=== PATIENT | female | born 1930 | race Caucasian/White ===

== ENCOUNTER 2016-09-16 12:27 | Emergency (ER) | payer MEDICARE ==
[~2016-09-16] VITALS: Ht 162.6 cm; Wt 75.0 kg
[~2016-09-16 12:27] MED LIST: CITA10TA4 PO; COZA50TA PO; DYAZ37.52 PO; OCUVTAB PO
[2016-09-16 12:31] VITALS: BP 157/72; PULSE 75; RESP 15; TEMP 98.1; O2SAT 97
[2016-09-16] MEDS ORDERED: B/P MED (12:37)
[2016-09-16] MEDS ORDERED: CHOLESTEROL MED (12:37)
[2016-09-16] MEDS ORDERED: ACID REFLUX (12:37)
[2016-09-16] MEDS ORDERED: SODIUM CHLORID 0.9% 500 ML INJ 500 ML IV ONE (12:45)
[2016-09-16] MEDS ORDERED: MECLIZINE HCL 25 MG TAB PO ONE (12:45)
[2016-09-16] MEDS ORDERED: ONDANSETRON HCL 4 MG/2 ML VIAL IVP ONE (12:45)
[2016-09-16 12:50] VITALS: O2SAT 97
[2016-09-16 12:56] LABS: AUTOMATED NEUTROPHIL # 5.4 TH/MM3 (1.8-7.7); BASOPHIL % 0.6 % (0.0-2.0); EOSINOPHIL # 0.1 TH/MM3 (0-0.4); EOSINOPHIL % 1.6 % (0.0-4.0); HEMO FLAGS DIFF FINAL; LYMPH % 19.5 % (9.0-44.0); LYMPHOCYTE # 1.5 TH/MM3 (1.0-4.8); MEAN CELL VOLUME 86.5 FL (80.0-100.0); MEAN CORPUSCULAR HEMOGLOBIN 28.5 PG (27.0-34.0); NEUT % 72.3 % (16.0-70.0); PLATELET COUNT 278 TH/MM3 (150-450); RED BLOOD COUNT 4.85 MIL/MM3 (4.00-5.30); RED CELL DISTRIBUTION WIDTH 13.7 % (11.6-17.2); WHITE BLOOD COUNT 7.5 TH/MM3 (4.0-11.0)
[2016-09-16] MEDS: SODIUM CHLORIDE 0.9% FLUSH 5 ML FLUSH IVF PRN ×2 (13:03→14:43)
[2016-09-16 13:05] LABS: CHLORIDE 101 MEQ/L (98-107); POTASSIUM 3.8 MEQ/L (3.5-5.1); SODIUM (NA) 139 MEQ/L (136-145)
[2016-09-16 13:09] LABS: ANION GAP 9 MEQ/L (5-15); BLOOD UREA NITROGEN 18 MG/DL (7-18)
[2016-09-16 13:12] LABS: ALT (GPT) 18 U/L (10-53); APTT (PATIENT) 31.3 SEC (24.3-30.1); AST (GOT) 14 U/L (15-37); GLOMERULAR FILTRATION RATE 68 ML/MIN (>89); PROTHROMBIN TIME - PATIENT 10.6 SEC (9.8-11.6)
[2016-09-16 13:14] LABS: TOTAL BILIRUBIN ADULT 0.4 MG/DL (0.2-1.0)
[2016-09-16 13:15] LABS: ALKALINE PHOSPHATASE 58 U/L (45-117)
--- NOTE | 2016-09-16 13:27 | RADHPO ---
EXAM DATE/TIME: 09/16/2016 13:09 [facility] COMPARISON: No previous studies available for comparison. INDICATIONS : Dizziness today. RADIATION DOSE: 65.90 CTDIvol (mGy) MEDICAL HISTORY : Hypertension. SURGICAL HISTORY : Tonsillectomy. ENCOUNTER: Initial ACUITY: 1 day PAIN SCALE: 0/10 LOCATION: Bilateral head TECHNIQUE: Multiple contiguous axial images were obtained of the head. Using automated exposure control and adjustment of the mA and/or kV according to patient size, radiation dose was kept as low as reasonably achievable to obtain optimal diagnostic quality images. FINDINGS: CEREBRUM: The ventricles are normal for age. No evidence of midline shift, mass lesion, hemorrha ge or acute infarction. No extra-axial fluid collections are seen. POSTERIOR FOSSA: The cerebellum and brainstem are intact. The 4th ventricle is midline. The cer ebellopontine angle is unremarkable. EXTRACRANIAL: The visualized portion of the orbits is intact. SKULL: The calvaria is intact. No evidence of skull fracture. CONCLUSION: Negative for acute process. Darwin Terry MD FACR on September 16, 2016 at 13:25 Board Certified Radiologist. This report was verified electronically.
[2016-09-16 13:53] LABS: BLOOD, URINE NEG (NEG); GLUCOSE,URINE NEG (NEG); KETONE, URINE TRACE mg/dL (NEG); NITRITE,URINE NEG (NEG); PH, URINE 6.5 (5.0-8.5)
[2016-09-16] MEDS ORDERED: METOCLOPRAMIDE HCL 10 MG TAB PO ONE (14:00)
[2016-09-16 14:03] LABS: METHOD OF COLLECTION CLEAN CATCH
[2016-09-16 14:04] LABS: COMMENT (UR) CULT NOT INDICATED; CULTURE IF INDICATED CULT NOT INDICATED; RBC, URINE 0-3 /hpf (0-3); URINE COLOR YELLOW (YELLW/STRAW); WBC, URINE 0-2 /hpf (0-5)
--- NOTE | 2016-09-16 14:28 | PD ---
HPI Chief Complaint: Dizziness Time Seen by Provider: 12:34 Travel History International Travel<30 days: No Contact w/Intl Traveler<30days: No Traveled to known affect area: No History of Present Illness HPI Patient is an 85-year-old female who comes in complaining of dizziness. She says she has been having a fullness in her right ear for the past few days, and has felt very dizzy today when she woke up. She says the dizziness mostly comes on when she sits or stands up. He feels better when she lays still. She denies any falls or head trauma. She denies any chest pain or shortness of breath. She denies any fever or chills. 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) Endocrine: No Gastrointestinal Disorders: Yes (GI BLEED) Genitourinary: No Hypertension: Yes Immune Disorder: No Implanted Vascular Access Dvce: Yes Musculoskeletal: Yes Neurologic: Yes Psychiatric: No Reproductive: No Respiratory: No Menopausal: Yes Past Surgical History Abdominal Surgery: Yes (APPENDECTOMY (CHILDHOOD)) AICD: No Appendectomy: Yes (childhood) Arteriovenous Shunt: No Cardiac Surgery: Yes Ear Surgery: No Endocrine Surgery: No Eye Surgery: No Genitourinary Surgery: No Gynecologic Surgery: No Insulin Pump: No Joint Replacement: Yes (bilateral knee) Oral Surgery: Yes (T&A (CHILDHOOD)) Pacemaker: No Thoracic Surgery: No Tonsillectomy: Yes Other Surgery: Yes (BREAST BX X 2) Social History Alcohol Use: No Tobacco Use: No Substance Use: No Allergies-Medications (Allergen,Severity, Reaction): Coded Allergies: Diclofenac (Verified Allergy, Severe, SEVERE VOMITING, 09/16/16) Paxil (Verified Allergy, Unknown, 09/16/16) Septra (Verified Allergy, Unknown, 09/16/16) Zoloft (Verified Allergy, Unknown, 09/16/16) Uncoded Allergies: PAIN MEDICATIONS (Allergy, Unknown, 09/16/16) Reported Meds & Prescriptions Reported Meds & Active Scripts Active Reported [Acid Reflux] [Cholesterol Med] [B/P Med] Review of Systems Except as stated in HPI: all other systems reviewed are Neg General / Constitutional: No: Fever, Chills Eyes: No: Blurred Vision HENT: Positive: Vertigo, No: Headaches Cardiovascular: No: Chest Pain or Discomfort Respiratory: No: Shortness of Breath Gastrointestinal: No: Nausea, Vomiting Musculoskeletal: No: Weakness, Edema Skin: No Change in Pigmentation Neurologic: Positive: Dizziness Physical Exam Narrative GENERAL: Awake and alert in no acute distress. SKIN: Warm and dry. HEAD: Atraumatic. Normocephalic. EYES: Pupils equal and round. No scleral icterus. Extraocular movements intact. ENT: Mucous membranes pink and moist. Tympanic membranes with no erythema bilaterally, light reflex present bilaterally. NECK: Trachea midline. No JVD. CARDIOVASCULAR: Regular rate and rhythm. No murmur appreciated. RESPIRATORY: No accessory muscle use. Clear to auscultation. Breath sounds equal bilaterally. GASTROINTESTINAL: Abdomen soft, non-tender, nondistended. MUSCULOSKELETAL: No obvious deformities. No clubbing. No cyanosis. No edema. NEUROLOGICAL: Awake and alert. No obvious cranial nerve deficits. Motor grossly within normal limits. Normal speech. Normal cerebellar function testing. PSYCHIATRIC: Appropriate mood and affect; insight and judgment normal. Data Data Last Documented VS Vital Signs Date Time Temp Pulse Resp B/P Pulse Ox O2 Delivery O2 Flow Rate FiO2 09/16/16 12:50 97 Room Air 09/16/16 12:31 98.1 75 15 157/72 Orders Electrocardiogram (09/16/16 12:39) Complete Blood Count With Diff (09/16/16 12:39) Comprehensive Metabolic Panel (09/16/16 12:39) Troponin I (09/16/16 12:39) Act Partial Throm Time (Ptt) (09/16/16 12:39) Prothrombin Time / Inr (Pt) (09/16/16 12:39) Urinalysis - C+S If Indicated (09/16/16 12:39) Ua Includes Microscopic (09/16/16 12:39) Ct Brain W/O Iv Contrast(Rout) (09/16/16 12:39) Ecg Monitoring (09/16/16 12:39) Iv Access Insert/Monitor (09/16/16 12:39) Oximetry (09/16/16 12:39) Meclizine (Antivert) (09/16/16 12:45) Ondansetron Inj (Zofran Inj) (09/16/16 12:45) Sodium Chloride 0.9% Flush (Ns Flush) (09/16/16 12:45) Sodium Chlorid 0.9% 500 Ml Inj (Ns 500 M (09/16/16 12:45) Metoclopramide (Reglan) (09/16/16 14:00) Labs Laboratory Tests Test 09/16/16 09/16/16 12:51 13:40 White Blood Count 7.5 TH/MM3 Red Blood Count 4.85 MIL/MM3 Hemoglobin 13.8 GM/DL Hematocrit 42.0 % Mean Corpuscular Volume 86.5 FL Mean Corpuscular Hemoglobin 28.5 PG Mean Corpuscular Hemoglobin 33.0 % Concent Red Cell Distribution Width 13.7 % Platelet Count 278 TH/MM3 Mean Platelet Volume 7.0 FL Neutrophils (%) (Auto) 72.3 % Lymphocytes (%) (Auto) 19.5 % Monocytes (%) (Auto) 6.0 % Eosinophils (%) (Auto) 1.6 % Basophils (%) (Auto) 0.6 % Neutrophils # (Auto) 5.4 TH/MM3 Lymphocytes # (Auto) 1.5 TH/MM3 Monocytes # (Auto) 0.5 TH/MM3 Eosinophils # (Auto) 0.1 TH/MM3 Basophils # (Auto) 0.0 TH/MM3 CBC Comment DIFF FINAL Differential Comment Prothrombin Time 10.6 SEC Prothromb Time International 1.0 RATIO Ratio Activated Partial 31.3 SEC Thromboplast Time Sodium Level 139 MEQ/L Potassium Level 3.8 MEQ/L Chloride Level 101 MEQ/L Carbon Dioxide Level 29.0 MEQ/L Anion Gap 9 MEQ/L Blood Urea Nitrogen 18 MG/DL Creatinine 0.80 MG/DL Estimat Glomerular Filtration 68 ML/MIN Rate Random Glucose 108 MG/DL Calcium Level 9.3 MG/DL Total Bilirubin 0.4 MG/DL Aspartate Amino Transf 14 U/L (AST/SGOT) Alanine Aminotransferase 18 U/L (ALT/SGPT) Alkaline Phosphatase 58 U/L Troponin I LESS THAN 0.02 NG/ML Total Protein 7.1 GM/DL Albumin 3.3 GM/DL Urine Collection Type CLEAN CATCH Urine Color YELLOW Urine Turbidity CLEAR Urine pH 6.5 Urine Specific [place] 1.017 Urine Protein NEG mg/dL Urine Glucose (UA) NEG mg/dL Urine Ketones TRACE mg/dL Urine Occult Blood NEG Urine Nitrite NEG Urine Bilirubin NEG Urine Leukocyte Esterase NEG Urine RBC 0-3 /hpf Urine WBC 0-2 /hpf Urine Squamous Epithelial 6-8 /hpf Cells Microscopic Urinalysis Comment CULT NOT INDICATED Urine Collection Time 13:40 [facility] Medical Decision Making Medical Screen Exam Complete: Yes Emergency Medical Condition: Yes Interpretation(s) ECG shows normal sinus rhythm at 63, no ST elevation or depression. Normal intervals. Differential Diagnosis ICH versus vertigo versus electrolyte imbalance versus infection versus arrhythmia Narrative Course Patient is an 85-year-old female comes in complaining of dizziness that is worse with sitting or standing up. Exam shows no neurologic abnormalities. IV established, patient connected to lunchroom monitor. ECG shows normal sinus rhythm, normal intervals. Labs sent show no acute abnormalities. CT of the head performed shows no acute abnormalities. Patient given IV fluids, meclizine. She reports some improvement of her symptoms, but still feels a little dizzy. Given a dose of Reglan. She reports resolution of her symptoms. Patient will be discharged with prescription for meclizine. Advised follow-up with her doctor. Advised she may need to follow-up with ENT if her symptoms continue. Advised to return to the ED as needed for any worsening symptoms. Patient is comfortable discharge at this time. Diagnosis Primary Impression: Vertigo Patient Instructions: Benign Paroxysmal Positional Vertigo (ED), General Instructions Additional Instructions: Follow up with your doctor. Take the Meclizine as needed for dizziness. Be sure to drink plenty of fluids. Return to the ED as needed for any worsening symptoms. Scripts Meclizine 25 Mg Tab25 Mg PO TID PRN (VERTIGO) 7 Days Ref 0 Prov:Jennifer Ochoa MD 09/16/16 Disposition: 01 DISCHARGE HOME Condition: Stable Jennifer Ochoa MD Sep 16, 2016 14:27
--- NOTE | 2016-09-16 15:13 | EKG ---
Date Performed: 09/16/2016 Time Performed: 12:52:22 PTAGE: 85 years EKG: Sinus rhythm Possible left anterior fascicular block QRS changes V3/V4 may be due to LVH but cannot rule out ante rior infarct Abnormal ECG PREVIOUS TRACING : 12/22/2013 18.42 Since previous tracing, no significant change noted DOCTOR: Larry Jeronimo Interpretating Date/Time 09/16/2016 15:13:11
[2016-09-16] MEDS ORDERED: MECL-62 PO (15:23)
[2016-09-16 16:08] VITALS: BP 189/89
== END 2016-09-16 16:10 | disposition home or self-care (01) ==
LOC: PHED 12:27
DX: R42 Dizziness and giddiness (principal); R94.31 Abnormal electrocardiogram [ECG] [EKG]; I10 Essential (primary) hypertension; E78.00 Pure hypercholesterolemia, unspecified; Z86.79 Personal history of other diseases of the circulatory system; Z87.19 Personal history of other diseases of the digestive system; Z87.39 Personal history of other diseases of the musculoskeletal system and connective tissue; Z86.69 Personal history of other diseases of the nervous system and sense organs
CPT/HCPCS: 70450; 80053; 81001; 84484; 85025; 85610; 85730; 93005; 96361; 96374; 99284; J2405; J7040

== ENCOUNTER 2016-10-07 08:12 | Emergency (ER) | payer MEDICARE ==
[~2016-10-07] VITALS: Ht 162.6 cm; Wt 75.0 kg
[~2016-10-07 08:12] MED LIST changes: +ACID REFLUX; +B/P MED; +CHOLESTEROL MED; -CITA10TA4 PO; -COZA50TA PO; -DYAZ37.52 PO; +MECL-62 PO; -OCUVTAB PO
[2016-10-07 08:23] VITALS: BP 159/70; PULSE 66; RESP 16; TEMP 95.2; O2SAT 96
[2016-10-07] MEDS ORDERED: SODIUM CHLOR 0.9% 1000 ML INJ 1,000 ML IV ONE (08:34)
--- NOTE | 2016-10-07 08:40 | PD ---
HPI Chief Complaint: Dizziness Time Seen by Provider: 08:34 Travel History International Travel<30 days: No Contact w/Intl Traveler<30days: No Traveled to known affect area: No History of Present Illness HPI The patient is a 85-year-old female who presents emergency department for dizziness. The patient states she had dizziness several weeks ago and was evaluated in the emergency department. The patient was diagnosed with vertigo at that time and was prescribed meclizine. The patient states her symptoms did improve, however, the meclizine constipated her and also made her significantly drowsy. The patient called her primary physician's office, Dr. Vasquez, who advised to take her medications. However, the patient states she is unable to tolerate her medications, therefore, stopped taking her medications. The patient states she awakened this morning to use the restroom, when she stood up she had vertigo. Patient states everything was spinning, states she subsequently fell, however, did not strike her head or lose consciousness. The patient currently complains of intermittent vertigo which is worse with positional movements and sitting upright, also states she has difficulty ambulating secondary to weakness and vertigo. She denies any focal deficits of the upper or lower extremities. The patient denies any history of CVA or TIA. She does note a history of hypertension and hyperlipidemia. The patient's symptoms are moderate, worse with certain positional changes, and alleviated with meclizine, however, the patient was unable to tolerate the meclizine. 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) Endocrine: No Gastrointestinal Disorders: Yes (GI BLEED) Genitourinary: No Hypertension: Yes Immune Disorder: No Implanted Vascular Access Dvce: Yes Musculoskeletal: Yes Neurologic: Yes Psychiatric: No Reproductive: No Respiratory: No Menopausal: Yes Past Surgical History Abdominal Surgery: Yes (APPENDECTOMY (CHILDHOOD)) AICD: No Appendectomy: Yes (childhood) Arteriovenous Shunt: No Cardiac Surgery: Yes Ear Surgery: No Endocrine Surgery: No Eye Surgery: No Genitourinary Surgery: No Gynecologic Surgery: No Insulin Pump: No Joint Replacement: Yes (bilateral knee) Oral Surgery: Yes (T&A (CHILDHOOD)) Pacemaker: No Thoracic Surgery: No Tonsillectomy: Yes Other Surgery: Yes (BREAST BX X 2) Social History Alcohol Use: No Tobacco Use: No Substance Use: No Allergies-Medications (Allergen,Severity, Reaction): Coded Allergies: Diclofenac (Verified Allergy, Severe, SEVERE VOMITING, 10/07/16) Paxil (Verified Allergy, Unknown, 10/07/16) Septra (Verified Allergy, Unknown, 10/07/16) Zoloft (Verified Allergy, Unknown, 10/07/16) Uncoded Allergies: PAIN MEDICATIONS (Allergy, Unknown, 09/16/16) Reported Meds & Prescriptions Reported Meds & Active Scripts Active Reported [Cholesterol Med] [B/P Med] Review of Systems Except as stated in HPI: all other systems reviewed are Neg Eyes: No: Diploplia, Blurred Vision HENT: Positive: Headaches, Vertigo, No: Lightheadedness Cardiovascular: No: Chest Pain or Discomfort Respiratory: No: Shortness of Breath Gastrointestinal: No: Nausea, Vomiting Neurologic: Positive: Dizziness, Ataxia (difficulty walking secondary to vertigo), Headache, No: Change in Mentation, Slurred Speech, Paresthesia, Sensory Disturbance Physical Exam Narrative GENERAL: Awake, alert, 85-year-old female who appears her stated age and is in no acute respiratory distress. SKIN: Warm and dry. HEAD: Atraumatic. Normocephalic. EYES: Pupils equal and round. 3 mm bilateral and reactive. EOMs are intact. No obvious nystagmus. ENT: No nasal bleeding or discharge. Mucous membranes pink and moist. NECK: Trachea midline. No JVD. CARDIOVASCULAR: Regular rate and rhythm. No murmur appreciated. RESPIRATORY: No accessory muscle use. Clear to auscultation. Breath sounds equal bilaterally. GASTROINTESTINAL: Abdomen soft, non-tender, nondistended. No rebound tenderness. MUSCULOSKELETAL: No obvious deformities. No clubbing. No cyanosis. No edema. NEUROLOGICAL: Awake and alert. No obvious cranial nerve deficits. Motor grossly within normal limits. Normal speech. Nonfocal. No drift of the upper or lower extremities. Xofc-el-[id number] is normal. Finger to nose is normal. Patient was stood up and ambulated, has slight shuffling gait but no obvious ataxia. PSYCHIATRIC: Appropriate mood and affect; insight and judgment normal. Data Data Last Documented VS Vital Signs Date Time Temp Pulse Resp B/P Pulse Ox O2 Delivery O2 Flow Rate FiO2 1/28/17 11:17 65 18 169/85 96 Room Air 10/07/16 08:23 95.2 Orders Electrocardiogram (10/07/16 08:34) Basic Metabolic Panel (Bmp) (10/07/16 08:34) Complete Blood Count With Diff (10/07/16 08:34) Magnesium (Mg) (10/07/16 08:34) Ckmb (Isoenzyme) Profile (10/07/16 08:34) Troponin I (10/07/16 08:34) Ecg Monitoring (10/07/16 08:34) Iv Access Insert/Monitor (10/07/16 08:34) Oximetry (10/07/16 08:34) Meclizine (Antivert) (10/07/16 08:45) Sodium Chloride 0.9% Flush (Ns Flush) (10/07/16 08:45) Sodium Chlor 0.9% 1000 Ml Inj (Ns 1000 M (10/07/16 08:34) Orthostatic Vital Signs (10/07/16 08:34) Mri Brain W&W/O Contrast (10/07/16 ) Potassium Chloride (Kcl) (10/07/16 09:15) Labs Laboratory Tests Test 10/07/16 08:45 White Blood Count 7.3 TH/MM3 Red Blood Count 4.73 MIL/MM3 Hemoglobin 13.7 GM/DL Hematocrit 40.8 % Mean Corpuscular Volume 86.3 FL Mean Corpuscular Hemoglobin 29.0 PG Mean Corpuscular Hemoglobin 33.5 % Concent Red Cell Distribution Width 13.1 % Platelet Count 261 TH/MM3 Mean Platelet Volume 7.4 FL Neutrophils (%) (Auto) 62.5 % Lymphocytes (%) (Auto) 21.2 % Monocytes (%) (Auto) 7.8 % Eosinophils (%) (Auto) 4.0 % Basophils (%) (Auto) 4.5 % Neutrophils # (Auto) 4.6 TH/MM3 Lymphocytes # (Auto) 1.5 TH/MM3 Monocytes # (Auto) 0.6 TH/MM3 Eosinophils # (Auto) 0.3 TH/MM3 Basophils # (Auto) 0.3 TH/MM3 CBC Comment DIFF FINAL Differential Comment Sodium Level 133 MEQ/L Potassium Level 2.9 MEQ/L Chloride Level 94 MEQ/L Carbon Dioxide Level 32.0 MEQ/L Anion Gap 7 MEQ/L Blood Urea Nitrogen 16 MG/DL Creatinine 0.89 MG/DL Estimat Glomerular Filtration 60 ML/MIN Rate Random Glucose 99 MG/DL Calcium Level 8.8 MG/DL Magnesium Level 2.1 MG/DL Total Creatine Kinase 32 U/L Troponin I LESS THAN 0.02 NG/ML MDM Medical Decision Making Medical Screen Exam Complete: Yes Emergency Medical Condition: Yes Medical Record Reviewed: Yes Interpretation(s) EKG reveals sinus bradycardia with a heart rate of 59. Nonspecific ST changes. Laboratory Tests Test 10/07/16 08:45 White Blood Count 7.3 TH/MM3 Red Blood Count 4.73 MIL/MM3 Hemoglobin 13.7 GM/DL Hematocrit 40.8 % Mean Corpuscular Volume 86.3 FL Mean Corpuscular Hemoglobin 29.0 PG Mean Corpuscular Hemoglobin 33.5 % Concent Red Cell Distribution Width 13.1 % Platelet Count 261 TH/MM3 Mean Platelet Volume 7.4 FL Neutrophils (%) (Auto) 62.5 % Lymphocytes (%) (Auto) 21.2 % Monocytes (%) (Auto) 7.8 % Eosinophils (%) (Auto) 4.0 % Basophils (%) (Auto) 4.5 % Neutrophils # (Auto) 4.6 TH/MM3 Lymphocytes # (Auto) 1.5 TH/MM3 Monocytes # (Auto) 0.6 TH/MM3 Eosinophils # (Auto) 0.3 TH/MM3 Basophils # (Auto) 0.3 TH/MM3 CBC Comment DIFF FINAL Differential Comment Sodium Level 133 MEQ/L Potassium Level 2.9 MEQ/L Chloride Level 94 MEQ/L Carbon Dioxide Level 32.0 MEQ/L Anion Gap 7 MEQ/L Blood Urea Nitrogen 16 MG/DL Creatinine 0.89 MG/DL Estimat Glomerular Filtration 60 ML/MIN Rate Random Glucose 99 MG/DL Calcium Level 8.8 MG/DL Magnesium Level 2.1 MG/DL Total Creatine Kinase 32 U/L Troponin I LESS THAN 0.02 NG/ML MRI reveals bilateral cortical atrophy and chronic white matter changes characteristic for patient's age. No acute intracranial pathology. Differential Diagnosis Differential diagnosis includes benign positional vertigo, labyrinthitis, Mni re's disease, serous otitis, intracranial hemorrhage, cerebellar infarct, hyponatremia, arrhythmia. Narrative Course IV was established, labs are drawn and sent, and the patient was placed on cardiac telemetry monitoring and continuous pulse oximetry monitoring. Patient was administered meclizine and IV fluids. Orthostatic vital signs were obtained. I reviewed the EMR from the patient's previous visit for dizziness, her CT of the brain was negative for acute findings and sodium/troponin were normal. Therefore, MRI was ordered to rule out cerebellar infarct. Laboratory evaluation is unremarkable. MRI is negative for cerebellar infarct. The patient's symptoms had resolved, per to be intermittent. Patient is advised to take the meclizine as needed and a follow-up with ENT. She will be discharged home with family. Return if symptoms worsen or progress. Diagnosis Primary Impression: Vertigo Patient Instructions: General Instructions Additional Instructions: Follow-up with ENT. Please provide a patient a copy of her labs and MRI results at discharge. Return if symptoms worsen or progress. Med/Other Pt SpecificInfo: Prescription(s) given Scripts Meclizine 25 Mg Tab25 Mg PO TID PRN (VERTIGO) #20 TAB Ref 0 Prov:Mukund Rm MD 10/07/16 Disposition: 01 DISCHARGE HOME Condition: Stable Mukund Rm MD Oct 07, 2016 08:40
[2016-10-07 08:45] VITALS: O2SAT 96
[2016-10-07] MEDS ORDERED: MECLIZINE HCL 25 MG TAB PO ONE (08:45)
[2016-10-07] MEDS ORDERED: SODIUM CHLORIDE 0.9% FLUSH 5 ML FLUSH IVF PRN (08:45)
[2016-10-07 09:00] LABS: AUTOMATED NEUTROPHIL # 4.6 TH/MM3 (1.8-7.7); BASOPHIL # 0.3 TH/MM3 (0-0.2); BASOPHIL % 4.5 % (0.0-2.0); EOSINOPHIL # 0.3 TH/MM3 (0-0.4); HEMATOCRIT 40.8 % (35.0-46.0); HEMO FLAGS DIFF FINAL; LYMPH % 21.2 % (9.0-44.0); LYMPHOCYTE # 1.5 TH/MM3 (1.0-4.8); MEAN CELL VOLUME 86.3 FL (80.0-100.0); MEAN CORPUSCULAR HGB CONC 33.5 % (32.0-36.0); MONO % 7.8 % (0.0-8.0); NEUT % 62.5 % (16.0-70.0); PLATELET COUNT 261 TH/MM3 (150-450); RED BLOOD COUNT 4.73 MIL/MM3 (4.00-5.30); RED CELL DISTRIBUTION WIDTH 13.1 % (11.6-17.2); WHITE BLOOD COUNT 7.3 TH/MM3 (4.0-11.0)
[2016-10-07] MEDS ORDERED: GADODIAMIDE PF 287 MG/ML 20 ML VIAL (for RAD MRI) IV ONE (09:00)
[2016-10-07 09:04] VITALS: BP 146/61; PULSE 56; RESP 18; O2SAT 94
[2016-10-07 09:13] LABS: ANION GAP 7 MEQ/L (5-15); BLOOD UREA NITROGEN 16 MG/DL (7-18); CHLORIDE 94 MEQ/L (98-107); GLOMERULAR FILTRATION RATE 60 ML/MIN (>89); MAGNESIUM 2.1 MG/DL (1.5-2.5); SODIUM (NA) 133 MEQ/L (136-145)
[2016-10-07 09:14] LABS: POTASSIUM 2.9 MEQ/L (3.5-5.1)
[2016-10-07] MEDS ORDERED: POTASSIUM CHLORIDE 20 MEQ CONTROLLED RELEASE TAB PO ONE (09:15)
[2016-10-07 09:19] LABS: CREATINE KINASE 32 U/L (26-192)
[2016-10-07 09:25] VITALS: BP_SYST 147; BP_SYST 156; BP_SYST 169; BP_DIAS 63; BP_DIAS 69; BP_DIAS 70; RESP 18
[2016-10-07 09:50] VITALS: BP 172/67; PULSE 58; RESP 18; O2SAT 96
[2016-10-07 11:17] VITALS: BP 169/85; PULSE 65; RESP 18; O2SAT 96
--- NOTE | 2016-10-07 11:27 | RADHPO ---
EXAM DATE/TIME: 10/07/2016 10:51 [facility] COMPARISON: CT BRAIN W/O CONTRAST, September 16, 2016, 13:09. INDICATIONS : Dizziness. CONTRAST: 15 cc Omniscan (gadodiamide) IV MEDICAL HISTORY : Hypercholesterolemia. Gastroesophageal reflux disease. Hypertension. SURGICAL HISTORY : Appendectomy. Tonsillectomy. Bilateral knee replacements. ENCOUNTER: Initial ACUITY: 1 day PAIN SCORE: 0/10 LOCATION: cranial TECHNIQUE: Multiplanar, multisequence MRI of the brain was performed both prior to and following the administrat ion of paramagnetic contrast. FINDINGS: CEREBRUM: The ventricles are normal for age. There is bilateral cortical atrophy. No evidence of midline shift, mass lesion, hemorrhage or acute infarction. No extraaxial fluid collections are seen. The pituita ry gland and suprasellar cistern are normal in configuration. WHITE MATTER: No significant signal abnormalities are seen in the white matter. A few high signal spots are seen in the white matter tracts bilaterally characteristic of ischemic edema patient. This correlates with p atient's age. POSTERIOR FOSSA: The cerebellum and brainstem are intact. The 4th ventricle is midline. The cerebellopontine angle is unremarkable. The cerebellar tonsils are normal in position. DIFFUSION IMAGING: No focal areas of restricted diffusion are seen. No evidence of acute infarction. EXTRACRANIAL: The visualized portions of the orbits and paranasal sinuses are unremarkable. POST-CONTRAST: No abnormal areas of parenchymal or dural enhancement. No evidence of blood-brain barrier breakdown. CONCLUSION: 1. 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 2. No acute intracranial pathology. Cory Dillard MD on October 07, 2016 at 11:24 Board Certified Radiologist. This report was verified electronically.
[2016-10-07] MEDS ORDERED: MECL-62 PO (11:35)
--- NOTE | 2016-10-07 12:59 | EKG ---
Date Performed: 10/07/2016 Time Performed: 08:38:34 PTAGE: 85 years EKG: Sinus bradycardia Left axis deviation Lateral ST-T changes may be due to hypertrophy and/or ischemia Compared to prior tracing no significant change Abnormal ECG PREVIOUS TRACING : 09/16/2016 12.52 DOCTOR: Se Swann Interpretating Date/Time 10/07/2016 12:59:22
== END 2016-10-07 12:03 | disposition home or self-care (01) ==
LOC: PHED 08:12
DX: R42 Dizziness and giddiness (principal); I10 Essential (primary) hypertension; R53.1 Weakness; E78.00 Pure hypercholesterolemia, unspecified; R94.31 Abnormal electrocardiogram [ECG] [EKG]
CPT/HCPCS: 70553; 80048; 82550; 83735; 84484; 85025; 93005; 96360; 96361; 99284; A9579; J7030

== ENCOUNTER 2017-10-12 18:18 | Inpatient (IN) | payer MEDICARE ==
[~2017-10-12] VITALS: Ht 165.1 cm; Wt 77.0 kg
[~2017-10-12 18:18] MED LIST changes: -ACID REFLUX
[2017-10-12 18:38] VITALS: BP 189/88; PULSE 72; RESP 16; TEMP 98.3; O2SAT 95
[2017-10-12] MEDS ORDERED: OCUVTAB PO (20:09)
[2017-10-12] MEDS ORDERED: POTA10CA PO (20:09)
[2017-10-12] MEDS ORDERED: OMEP20TA93 PO (20:09)
[2017-10-12] MEDS ORDERED: FURO20TA PO (20:09)
[2017-10-12] MEDS ORDERED: LOSA25TA PO (20:09)
[2017-10-12] MEDS ORDERED: LOVA40TA PO (20:09)
[2017-10-12] MEDS ORDERED: CALC500T55 PO (20:09)
[2017-10-12] MEDS ORDERED: CITA10TA4 PO (20:09)
[2017-10-12] MEDS ORDERED: ACETAMINOPHEN 325 MG TAB PO ONE (20:15)
--- NOTE | 2017-10-12 20:47 | PD ---
HPI Chief Complaint: Pain: Acute or Chronic Time Seen by Provider: 20:02 Travel History International Travel<30 days: No Contact w/Intl Traveler<30days: No Traveled to known affect area: No History of Present Illness HPI 86-year-old female that presents to the ED for evaluation of left knee pain. Per patient she had no injury. Per patient today she had severe pain on her left knee. She has a history of bilateral knee replacements. She follows with Dr. Swann for this. She states that she's had since of this in the past and was given steroids with some improvement but she continues to have symptoms like this. They come and go. No history of gout. No injury that she can think of. No fall. Per patient she does use a walker at home but is very difficult for her to ambulate because of the pain. Per patient the pain is 7 out of 10. Skin here by ambulance for evaluation of this. No numbness, tilling , weakness. No blood thinner use. No other medical issues reported at this time. PFSH Past Medical History Hx Anticoagulant Therapy: No Arthritis: Yes Blood Disorders: No Heart Rhythm Problems: No Cancer: No Cardiovascular Problems: Yes (HTN, CHOL) High Cholesterol: Yes Chest Pain: Yes Congestive Heart Failure: No Diabetes: No Diminished Hearing: Yes (STS SHE WEARS BILAT HEARING) Endocrine: No Gastrointestinal Disorders: Yes (GI BLEED) Genitourinary: No Hypertension: Yes Immune Disorder: No Implanted Vascular Access Dvce: Yes Musculoskeletal: Yes Neurologic: Yes Psychiatric: No Reproductive: No Respiratory: No Tetanus Vaccination: > 5 Years Influenza Vaccination: No ?: Not Menopausal: Yes Past Surgical History Abdominal Surgery: Yes (APPENDECTOMY (CHILDHOOD)) AICD: No Appendectomy: Yes (childhood) Arteriovenous Shunt: No Cardiac Surgery: Yes Ear Surgery: No Endocrine Surgery: No Eye Surgery: No Genitourinary Surgery: No Gynecologic Surgery: No Insulin Pump: No Joint Replacement: Yes (bilateral knee) Oral Surgery: Yes (T&A (CHILDHOOD)) Pacemaker: No Thoracic Surgery: No Tonsillectomy: Yes Other Surgery: Yes (BREAST BX X 2) Social History Alcohol Use: Yes (Occ.) Tobacco Use: No Substance Use: No Allergies-Medications (Allergen,Severity, Reaction): Coded Allergies: diclofenac (Unverified Allergy, Severe, SEVERE VOMITING, 10/12/17) paroxetine (Unverified Allergy, Unknown, 10/12/17) sertraline (Unverified Allergy, Unknown, 10/12/17) sulfamethoxazole (Unverified Allergy, Unknown, 10/12/17) trimethoprim (Unverified Allergy, Unknown, 10/12/17) Uncoded Allergies: PAIN MEDICATIONS (Allergy, Unknown, 09/16/16) Reported Meds & Prescriptions Reported Meds & Active Scripts Active Reported Losartan (Losartan Potassium) 25 Mg Tab 25 Mg PO DAILY Citalopram (Citalopram Hydrobromide) 10 Mg Tab 10 Mg PO DAILY Ocuvite (Multiple Vitamins W/ Minerals) 1 Tab 1 Tab PO DAILY Calcium Magnesium Caplet (Calcium Carb,Gluc/Mag Ox,Gluc) 500 Mg Calcium-250 Mg Tablet 1 Tab PO DAILY Omeprazole 20 Mg Tab 20 Mg PO DAILY Lovastatin 40 Mg Tab 40 Mg PO DAILY Potassium Chloride ER (Potassium Chloride) 10 Meq Cap 10 Meq PO EVERY OTHER DAY Furosemide 20 Mg Tab 20 Mg PO EVERY OTHER DAY Review of Systems Except as stated in HPI: all other systems reviewed are Neg Physical Exam Narrative GENERAL: SKIN: Warm and dry. HEAD: Atraumatic. Normocephalic. EYES: Pupils equal and round. No scleral icterus. No injection or drainage. ENT: No nasal bleeding or discharge. Mucous membranes pink and moist. NECK: Trachea midline. No JVD. CARDIOVASCULAR: Regular rate and rhythm. RESPIRATORY: No accessory muscle use. Clear to auscultation. Breath sounds equal bilaterally. GASTROINTESTINAL: Abdomen soft, non-tender, nondistended. Hepatic and splenic margins not palpable. MUSCULOSKELETAL: Extremities without clubbing, cyanosis, or edema. No obvious deformities. Full range of motion of the upper extremities. Full range of motion of the right lower extremity. Very painful for the patient to flex the left knee. Varus and valgus does appear to be negative. No sign of bruising or swelling but patient does have surgical scars to both knees bilaterally. Well-healed. 2+ pulses bilaterally. Sensation intact bilaterally. NEUROLOGICAL: Awake and alert. No obvious cranial nerve deficits. Motor grossly within normal limits. Five out of 5 muscle strength in the arms and legs. Normal speech. PSYCHIATRIC: Appropriate mood and affect; insight and judgment normal. Data Data Last Documented VS Vital Signs Date Time Temp Pulse Resp B/P (MAP) Pulse Ox O2 Delivery O2 Flow Rate FiO2 10/12/17 18:38 98.3 72 16 189/88 (121) 95 Orders Orders Knee, Complete (4vws) (10/12/17 20:04) Ice/Cold Pack (10/12/17 20:04) Us Leg Venous Doppler (10/12/17 20:04) Acetaminophen (Tylenol) (10/12/17 20:15) MDM Medical Decision Making Medical Screen Exam Complete: Yes Emergency Medical Condition: Yes Medical Record Reviewed: Yes Differential Diagnosis Fracture versus sprain versus strain versus DVT Narrative Course 86-year-old female that presents to the ED for evaluation of left knee injury. Patient was properly examined and was found to have signs and symptoms concerning for bony injury versus DVT. X-ray and ultrasound was ordered. Case will be signed out to my attending pending disposition and plan. Jason Collins Oct 12, 2017 20:47
--- NOTE | 2017-10-12 21:43 | RADRPT ---
EXAM DATE/TIME: 10/12/2017 21:17 [facility] COMPARISON: No previous studies available for comparison. INDICATIONS : Left leg pain. MEDICAL HISTORY : Hypertension. Hypercholesterolemia. Hearing aids. Glasses. Chest pain. GI bleed. Arthritis. SURGICAL HISTORY : Tonsillectomy. Appendectomy. Adenoidectomy. Bilateral knee surgery. Breast biopsy. ENCOUNTER: Subsequent ACUITY: 1 day PAIN SCORE: 7/10 LOCATION: Left leg. TECHNIQUE: Venous ultrasound of the leg was performed from the inguinal ligament to the proximal calf. Real-gregg e, color Doppler and spectral tracing, compression and augmentation techniques were used. FINDINGS: There is normal compressibility of the deep venous system from the inguinal region to the proximal ca lf. No echogenic clot is seen in the lumen of the common femoral, femoral, popliteal, and posterior tibial veins. There is a normal response of the venous system to proximal and distal augmentation an d respiration. Popliteal cyst is noted measuring 3.9 x 2.5 x 2.1 cm. CONCLUSION: No evidence of deep venous thrombosis. Popliteal cyst on the left measuring 3.9 x 2.5 x 2.1 cm. Richmond Moore MD on October 12, 2017 at 21:39 Board Certified Radiologist. This report was verified electronically.
--- NOTE | 2017-10-12 21:49 | RADRPT ---
EXAM DATE/TIME: 10/12/2017 20:34 [facility] COMPARISON: No previous studies available for comparison. INDICATIONS : Left popliteal knee pain. No known injury. MEDICAL HISTORY : Arthritis. Hypercholesterolemia. Gastroesophageal reflux disease. Hypertension. SURGICAL HISTORY : Total knee replacement, left. Total knee replacement, right. Appendectomy. Tonsillectomy ENCOUNTER: Initial ACUITY: 1 week PAIN SCORE: 9/10 LOCATION: Left knee FINDINGS: A left knee replacement is noted. There is a large suprapatellar knee joint effusion. No definite acu te fracture is noted. CONCLUSION: Large suprapatellar knee joint effusion. Richmond Moore MD on October 12, 2017 at 21:45 Board Certified Radiologist. This report was verified electronically.
[2017-10-12 22:06] VITALS: BP 202/77; PULSE 89; RESP 18; O2SAT 97
[2017-10-12] MEDS ORDERED: ONDANSETRON ODT 4 MG TAB PO ONE (22:15)
[2017-10-12] MEDS ORDERED: ACETAMINOPHEN/HYDROcodone 325 MG/5 MG TAB PO ONE (22:15)
[2017-10-12 22:28] VITALS: BP 198/78
[2017-10-12 23:10] LABS: AUTOMATED NEUTROPHIL # 11.6 TH/MM3 (1.8-7.7); BASOPHIL # 0.2 TH/MM3 (0-0.2); BASOPHIL % 1.4 % (0.0-2.0); EOSINOPHIL % 0.3 % (0.0-4.0); HEMATOCRIT 40.3 % (35.0-46.0); HEMOGLOBIN 13.4 GM/DL (11.6-15.3); LYMPH % 19.8 % (9.0-44.0); LYMPHOCYTE # 3.2 TH/MM3 (1.0-4.8); MEAN CELL VOLUME 85.4 FL (80.0-100.0); MEAN CORPUSCULAR HEMOGLOBIN 28.4 PG (27.0-34.0); MEAN CORPUSCULAR HGB CONC 33.3 % (32.0-36.0); MONO % 6.2 % (0.0-8.0); NEUT % 72.3 % (16.0-70.0); PLATELET COUNT 319 TH/MM3 (150-450); RED BLOOD COUNT 4.73 MIL/MM3 (4.00-5.30); RED CELL DISTRIBUTION WIDTH 14.2 % (11.6-17.2)
[2017-10-12 23:17] LABS: CHLORIDE 98 MEQ/L (98-107); SODIUM (NA) 132 MEQ/L (136-145)
[2017-10-12 23:21] LABS: CALCIUM 9.4 MG/DL (8.5-10.1)
[2017-10-12 23:22] LABS: ALBUMIN 3.6 GM/DL (3.4-5.0); BICARBONATE 24.3 MEQ/L (21.0-32.0); BLOOD UREA NITROGEN 16 MG/DL (7-18); GLUCOSE,RANDOM 128 MG/DL (74-106)
[2017-10-12 23:23] VITALS: BP 205/74; PULSE 69; RESP 18; O2SAT 94
[2017-10-12 23:25] LABS: ALT (GPT) 12 U/L (10-53); AST (GOT) 15 U/L (15-37); CREATININE 0.85 MG/DL (0.50-1.00); GLOMERULAR FILTRATION RATE 63 ML/MIN (>89)
[2017-10-12 23:26] LABS: TOTAL BILIRUBIN ADULT 0.6 MG/DL (0.2-1.0); TOTAL PROTEIN 7.6 GM/DL (6.4-8.2)
[2017-10-12 23:28] LABS: ALKALINE PHOSPHATASE 73 U/L (45-117)
[2017-10-12] MEDS ORDERED: MORPHINE SULFATE 2 MG/ML INJ IV PUSH ONE ×2 (23:45)
[2017-10-12] MEDS ORDERED: predniSONE 50 MG TAB PO ONE (23:45)
[2017-10-13] VITALS (11 sets, daily range): BP systolic 132–191; BP diastolic 57–103; PULSE 69–87; RESP 17–18; TEMP 96.2–98.2; O2SAT 93–99
[2017-10-13] MEDS ORDERED: LACTULOSE SYRUP 20 GM/30 ML CUP PO PRN (04:45)
[2017-10-13] MEDS ORDERED: ACETAMINOPHEN 325 MG TAB PO PRN (04:45)
[2017-10-13] MEDS ORDERED: SENNOSIDES 8.6 MG TAB PO PRN (04:45)
[2017-10-13] MEDS ORDERED: MAGNESIUM HYDROXIDE SUSP 30 ML CUP PO PRN (04:45)
[2017-10-13] MEDS ORDERED: MORPHINE SULFATE 2 MG/ML INJ IV PUSH ONE ×2 (04:45)
[2017-10-13] MEDS ORDERED: ONDANSETRON HCL 4 MG/2 ML VIAL IVP PRN (04:45)
[2017-10-13] MEDS ORDERED: BISACODYL 10 MG SUPP RECTAL PRN (04:45)
[2017-10-13] MEDS ORDERED: SODIUM CHLORIDE 0.9% FLUSH 10 ML FLUSH IV FLUSH PRN (04:45)
[2017-10-13] MEDS ORDERED: NALOXONE HCL 0.4 MG/ML AMP IV PUSH PRN (04:45)
--- NOTE | 2017-10-13 04:45 | PD ---
Physical Exam Narrative I, Dr. Ochoa, have reviewed the advance practice practitioner's documentation and am in agreement, met with the patient face to face, made the diagnosis, and the medical decision making was done by me. *My assessment and Findings: Patient is an 86-year-old female who comes in complaining of left knee pain. Exam shows a joint effusion, no erythema or warmth. She says that she has been having this pain on and off for the past several weeks. She says that she took a course of steroids once that helped with the pain. She has not had any injury. She has not had fever or chills. Data Data Last Documented VS Vital Signs Date Time Temp Pulse Resp B/P (MAP) Pulse Ox O2 Delivery O2 Flow Rate FiO2 10/13/17 04:30 18 10/13/17 03:54 74 151/71 (97) 95 Nasal Cannula 2.00 10/12/17 18:38 98.3 Orders Orders Knee, Complete (4vws) (10/12/17 20:04) Ice/Cold Pack (10/12/17 20:04) Us Leg Venous Doppler (10/12/17 20:04) Acetaminophen (Tylenol) (10/12/17 20:15) Ondansetron Odt (Zofran Odt) (10/12/17 22:15) Acetamin-Hydrocod 325-5 Mg (Victor 5-325 (10/12/17 22:15) Iv Access Insert/Monitor (10/12/17 22:48) Complete Blood Count With Diff (10/12/17 22:48) Comprehensive Metabolic Panel (10/12/17 22:48) Westergren Sedimentation Rate (10/12/17 22:48) Morphine Inj (Morphine Inj) (10/12/17 23:45) Morphine Inj (Morphine Inj) (10/12/17 23:45) Prednisone (Deltasone) (10/12/17 23:45) Morphine Inj (Morphine Inj) (10/13/17 04:45) Morphine Inj (Morphine Inj) (10/13/17 04:45) Admit Order (Ed Use Only) (10/13/17 ) Place In Observation (10/13/17 ) Vital Signs (Adult) Q4H (10/13/17 04:40) Diet Heart Healthy (10/13/17 Breakfast) Sodium Chloride 0.9% Flush (Ns Flush) (10/13/17 04:45) Sodium Chloride 0.9% Flush (Ns Flush) (10/13/17 09:00) Acetaminophen (Tylenol) (10/13/17 04:45) Ondansetron Inj (Zofran Inj) (10/13/17 04:45) Basic Metabolic Panel (Bmp) (10/14/17 06:00) Complete Blood Count With Diff (10/14/17 06:00) Pt Request For Service (10/13/17 04:40) Heparin Inj (Heparin Inj) (10/13/17 05:00) Naloxone Inj (Narcan Inj) (10/13/17 04:45) Docusate Sodium-Senna (Maci-Colace) (10/13/17 09:00) Magnesium Hydroxide Liq (Milk Of Magnesi (10/13/17 04:45) Sennosides (Senokot) (10/13/17 04:45) Bisacodyl Supp (Dulcolax Supp) (10/13/17 04:45) Lactulose Liq (Lactulose Liq) (10/13/17 04:45) Morphine Inj (Morphine Inj) (10/13/17 04:45) Labs Laboratory Tests Test 10/12/17 22:55 White Blood Count 16.0 TH/MM3 Red Blood Count 4.73 MIL/MM3 Hemoglobin 13.4 GM/DL Hematocrit 40.3 % Mean Corpuscular Volume 85.4 FL Mean Corpuscular Hemoglobin 28.4 PG Mean Corpuscular Hemoglobin Concent 33.3 % Red Cell Distribution Width 14.2 % Platelet Count 319 TH/MM3 Mean Platelet Volume 7.0 FL Neutrophils (%) (Auto) 72.3 % Lymphocytes (%) (Auto) 19.8 % Monocytes (%) (Auto) 6.2 % Eosinophils (%) (Auto) 0.3 % Basophils (%) (Auto) 1.4 % Neutrophils # (Auto) 11.6 TH/MM3 Lymphocytes # (Auto) 3.2 TH/MM3 Monocytes # (Auto) 1.0 TH/MM3 Eosinophils # (Auto) 0.0 TH/MM3 Basophils # (Auto) 0.2 TH/MM3 CBC Comment DIFF FINAL Differential Comment Erythrocyte Sedimentation Rate 11 mm/hr Blood Urea Nitrogen 16 MG/DL Creatinine 0.85 MG/DL Random Glucose 128 MG/DL Total Protein 7.6 GM/DL Albumin 3.6 GM/DL Calcium Level 9.4 MG/DL Alkaline Phosphatase 73 U/L Aspartate Amino Transf (AST/SGOT) 15 U/L Alanine Aminotransferase (ALT/SGPT) 12 U/L Total Bilirubin 0.6 MG/DL Sodium Level 132 MEQ/L Potassium Level 4.2 MEQ/L Chloride Level 98 MEQ/L Carbon Dioxide Level 24.3 MEQ/L Anion Gap 10 MEQ/L Estimat Glomerular Filtration Rate 63 ML/MIN [facility] Supervised Visit with [place]: Yes Narrative Course X-ray shows a joint effusion, no other acute abnormalities. Ultrasound is negative for DVT. Patient was given Tylenol with no relief of her symptoms. Given a Victor with no relief of her symptoms. Finally given morphine with relief of her symptoms. After several hours, the morphine wore off and she had pain again. She says she is unable to walk due to the pain. Labs sent show an elevated white blood cell count, however ESR is negative. Patient will be admitted for management of her intractable pain and inability to walk. Diagnosis Primary Impression: Knee pain, left Qualified Codes: M25.562 - Pain in left knee Additional Impression: Inability to walk Admitting Information Admitting Physician Requests: Jennifer Robles MD Oct 13, 2017 04:45
[2017-10-13] MEDS: HEPARIN SODIUM - SQ 10,000 UNITS/ML VIAL SQ SCH ×2 (05:15→13:35)
[2017-10-13] MEDS ORDERED: LOSARTAN 25 MG TAB PO ONE (05:45)
[2017-10-13] MEDS ORDERED: LOSARTAN 25 MG TAB PO SCH ×2 (06:00→12:00)
[2017-10-13] MEDS: MORPHINE SULFATE 2 MG/ML INJ IV PUSH PRN ×4 (06:27→22:22)
[2017-10-13 07:41] LABS: AUTOMATED NEUTROPHIL # 8.3 TH/MM3 (1.8-7.7); BASOPHIL # 0.1 TH/MM3 (0-0.2); BASOPHIL % 1.5 % (0.0-2.0); EOSINOPHIL % 0.1 % (0.0-4.0); HEMATOCRIT 37.3 % (35.0-46.0); HEMOGLOBIN 12.5 GM/DL (11.6-15.3); MEAN CORPUSCULAR HEMOGLOBIN 28.6 PG (27.0-34.0); MEAN CORPUSCULAR HGB CONC 33.6 % (32.0-36.0); MEAN PLATELET VOLUME 6.6 FL (7.0-11.0); MONO % 1.2 % (0.0-8.0); MONOCYTE # 0.1 TH/MM3 (0-0.9); NEUT % 87.2 % (16.0-70.0); PLATELET COUNT 283 TH/MM3 (150-450); RED BLOOD COUNT 4.38 MIL/MM3 (4.00-5.30); RED CELL DISTRIBUTION WIDTH 14.5 % (11.6-17.2); WHITE BLOOD COUNT 9.5 TH/MM3 (4.0-11.0)
[2017-10-13 07:52] LABS: CALCIUM 8.8 MG/DL (8.5-10.1)
[2017-10-13 07:53] LABS: BICARBONATE 28.5 MEQ/L (21.0-32.0)
[2017-10-13 07:56] LABS: CREATININE 0.77 MG/DL (0.50-1.00)
[2017-10-13] MEDS: cefTRIAXone INJ 1,000 MG in SODIUM CHLORIDE 0.9% INJ 100 ML IV SCH (09:34)
[2017-10-13] MEDS: SODIUM CHLORIDE 0.9% FLUSH 10 ML FLUSH IV FLUSH SCH ×2 (09:34→20:34)
[2017-10-13] MEDS: DOCUSATE SODIUM 50 MG/SENNA 8.6 MG TAB PO SCH ×2 (09:35→20:34)
[2017-10-13] MEDS ORDERED: PILL SPLITTER OTHER PRN (11:30)
[2017-10-13] MEDS: PANTOPRAZOLE SOD 20 MG DELAYED RELEASE TAB PO SCH (12:04)
[2017-10-13] MEDS: PRAVASTATIN SOD 40 MG TAB PO SCH (12:05)
[2017-10-13] MEDS: CITALOPRAM HYDROBROMIDE 20 MG TAB PO SCH (12:05)
[2017-10-13] MEDS ORDERED: cloNIDine HCL 0.1 MG TAB PO PRN (13:00)
[2017-10-13] MEDS ORDERED: ENALAPRILAT 1.25 MG/ML VIAL IV PUSH PRN (13:00)
--- NOTE | 2017-10-13 13:25 | HHI.HP ---
HPI Service [facility] Primary Care Physician No Primary Care Physician Admission Diagnosis intractable pain, unable to walk Diagnoses: (1) Effusion, left knee Diagnosis: Principal (2) Inability to walk Diagnosis: Principal Chief Complaint: Left knee pain Travel History International Travel<30 Days: No Contact w/Intl Traveler <30 Da: No Traveled to Known Affected Are: No History of Present Illness This is a 86-year-old female with known history of hypertension, hyperlipidemia , arthritis history of vertigo, history of syncope who presented to hospital because of left knee pain. Patient states that she has been experiencing left knee pain which she described as severe shooting pain as a 10/10 on a pain scale. Patient states the last few days she has been resting her knee with having elevated. She does live at an [facility] [place] in which he may try to help her get up yesterday but she could not bear weight because the pain was so severe. Because he cannot ambulate they brought her to the hospital for evaluation. Patient had workup done with x-ray that did show significant effusion in it was recommended by the ER physician that the patient be observed for further recommendations. Patient indicates that her last surgery was 8 years ago for her left knee replacement Dr. Fuller. She indicates the last year she has 3 episodes of the same symptoms with increased pain, edema. One episode right around Christmastime she was told that she had an infection and was started on steroids. Her knee didn't improve. She did have follow-up with Dr. Shree nicholson in September in which he indicated that she was okay and we'll see her back again in 2 years. At the present time she does have significant pain. Unable to ambulate. 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 Reported Medications Reported Meds & Active Scripts Active Reported Losartan (Losartan Potassium) 25 Mg Tab 25 Mg PO DAILY Citalopram (Citalopram Hydrobromide) 10 Mg Tab 10 Mg PO DAILY Ocuvite (Multiple Vitamins W/ Minerals) 1 Tab 1 Tab PO DAILY Calcium Magnesium Caplet (Calcium Carb,Gluc/Mag Ox,Gluc) 500 Mg Calcium-250 Mg Tablet 1 Tab PO DAILY Omeprazole 20 Mg Tab 20 Mg PO DAILY Lovastatin 40 Mg Tab 40 Mg PO DAILY Potassium Chloride ER (Potassium Chloride) 10 Meq Cap 10 Meq PO EVERY OTHER DAY Furosemide 20 Mg Tab 20 Mg PO EVERY OTHER DAY Allergies: Coded Allergies: diclofenac (Unverified Allergy, Severe, SEVERE VOMITING, 10/12/17) paroxetine (Unverified Allergy, Unknown, 10/12/17) sertraline (Unverified Allergy, Unknown, 10/12/17) sulfamethoxazole (Unverified Allergy, Unknown, 10/12/17) trimethoprim (Unverified Allergy, Unknown, 10/12/17) Uncoded Allergies: PAIN MEDICATIONS (Allergy, Unknown, 09/16/16) Family History Reviewed is significant for both mother and father with heart disease Social History Patient denies any tobacco, alcohol or illicit drugs Physical Exam Vital Signs Vital Signs Date Time Temp Pulse Resp B/P (MAP) Pulse Ox O2 Delivery O2 Flow Rate FiO2 10/13/17 12:29 161/94 (116) 10/13/17 08:00 96.4 87 17 191/81 (117) 98 10/13/17 06:28 82 18 175/86 (115) 96 Nasal Cannula 2.00 10/13/17 05:57 78 18 180/86 (117) 95 Nasal Cannula 2.00 10/13/17 05:35 77 18 181/103 (129) 96 Nasal Cannula 2.00 10/13/17 04:30 18 10/13/17 03:54 74 18 151/71 (97) 95 Nasal Cannula 2.00 10/13/17 02:35 72 18 136/57 (83) 96 Nasal Cannula 2.00 10/13/17 02:25 18 10/13/17 01:30 73 18 155/66 (95) 96 Nasal Cannula 2.00 10/13/17 01:21 18 10/13/17 01:05 18 10/13/17 00:35 18 10/13/17 00:16 69 18 177/75 (109) 94 Nasal Cannula 2.00 10/13/17 00:12 18 10/12/17 23:32 18 10/12/17 23:24 18 10/12/17 23:23 69 18 205/74 (117) 94 Room Air 10/12/17 22:28 198/78 (118) 10/12/17 22:06 89 18 202/77 (118) 97 Room Air 10/12/17 18:38 98.3 72 16 189/88 (121) 95 Physical Exam GENERAL: Well-developed, well-nourished, in no acute distress. alert and orientated HEENT: Head is normocephalic without any lesions or masses noted. Facial features are symmetric. Eyes: Pupils equal round reactive to light. Extraocular muscles are intact. Conjunctivae were clear. Oropharyngeal: Pharynx without any erythema edema. Tongue is midline without deviation. Buccal mucosa is moist without any masses or lesions NECK: Supple without any masses. Trachea midline no deviation. No JVD, no bruits are appreciated CARDIAC: Regular rhythm, regular rate. S1/S2 are heard. 2/6 holosystolic murmur , no gallops or rubs. LUNGS: Clear to auscultation bilaterally. No wheeze, rhonchi or rales. No use of accessory muscles on inspiration or expiration. ABDOMEN: Soft, nontender. Nondistended. Bowel sounds heard in all 4 quadrants. No organomegaly or masses. Negative rebound, negative guarding EXTREMITIES: No edema, pulses are equal bilaterally. No cyanosis or clubbing. Left knee with palpable tenderness noted over the medial inferior patellar region NEUROLOGY: Mood and affect appear appropriate. Cranial nerves II through XII grossly intact. Muscle strength 5/5 in upper and lower extremities bilaterally. Deep tendon reflexes are 2+ in upper and lower extremities bilaterally. Laboratory Laboratory Tests Test 10/12/17 22:55 10/13/17 07:37 White Blood Count 16.0 9.5 Red Blood Count 4.73 4.38 Hemoglobin 13.4 12.5 Hematocrit 40.3 37.3 Mean Corpuscular Volume 85.4 85.0 Mean Corpuscular Hemoglobin 28.4 28.6 Mean Corpuscular Hemoglobin Concent 33.3 33.6 Red Cell Distribution Width 14.2 14.5 Platelet Count 319 283 Mean Platelet Volume 7.0 6.6 Neutrophils (%) (Auto) 72.3 87.2 Lymphocytes (%) (Auto) 19.8 10.0 Monocytes (%) (Auto) 6.2 1.2 Eosinophils (%) (Auto) 0.3 0.1 Basophils (%) (Auto) 1.4 1.5 Neutrophils # (Auto) 11.6 8.3 Lymphocytes # (Auto) 3.2 1.0 Monocytes # (Auto) 1.0 0.1 Eosinophils # (Auto) 0.0 0.0 Basophils # (Auto) 0.2 0.1 CBC Comment DIFF FINAL DIFF FINAL Differential Comment Erythrocyte Sedimentation Rate 11 Blood Urea Nitrogen 16 14 Creatinine 0.85 0.77 Random Glucose 128 150 Total Protein 7.6 Albumin 3.6 Calcium Level 9.4 8.8 Alkaline Phosphatase 73 Aspartate Amino Transf (AST/SGOT) 15 Alanine Aminotransferase (ALT/SGPT) 12 Total Bilirubin 0.6 Sodium Level 132 132 Potassium Level 4.2 4.0 Chloride Level 98 97 Carbon Dioxide Level 24.3 28.5 Anion Gap 10 7 Estimat Glomerular Filtration Rate 63 71 Result Diagram: 10/13/17 0737 10/13/17 0737 Imaging Last Impressions Lower Extremity Ultrasound 10/12/172003 Signed Impressions: Service Date/Time: Thursday, October 12, 2017 21:17 - CONCLUSION: No evidence of deep venous thrombosis. Popliteal cyst on the left measuring 3.9 x 2.5 x 2.1 cm. Richmond Moore MD Knee X-Ray 10/12/172003 Signed Impressions: Service Date/Time: Thursday, October 12, 2017 20:34 - CONCLUSION: Large suprapatellar knee joint effusion. MD Devyn Gonzalezi VTE Risk Assessment Caprini VTE Risk Assessment: Mod/High Risk (score >= 2) Caprini Risk Assessment Model Point Value = 1 Point Value = 2 Point Value = 3 Point Value = 5 Age 41-60 Minor surgery BMI > 25 kg/m2 Swollen legs Varicose veins or History of unexplained or recurrent spontaneous Oral contraceptives or hormone replacement Sepsis (< 1 month) Serious lung disease, including pneumonia (< 1 month) Abnormal pulmonary function Acute myocardial infarction Congestive heart failure (< 1 month) History of inflammatory bowel disease Medical patient at bed rest Age 61-74 Arthroscopic surgery Major open surgery (> 45 min) Laparoscopic surgery (> 45 min) Malignancy Confined to bed (> 72 hours) Immobilizing plaster cast Central venous access Age >= 75 History of VTE Family history of VTE Factor V Leiden Prothrombin [id number] Lupus anticoagulant Anticardiolipin antibodies Elevated serum homocysteine Heparin-induced thrombocytopenia Other congenital or acquired thrombophilia Stroke (< 1 month) Elective arthroplasty Hip, pelvis, or leg fracture Acute spinal cord injury (< 1 month) Prophylaxis Regimen Total Risk Factor Score Risk Level Prophylaxis Regimen 0-1 Low Early ambulation 2 Moderate Order ONE of the following: *Sequential Compression Device (SCD) *Heparin 5000 units SQ BID 3-4 Higher Order ONE of the following medications: *Heparin 5000 units SQ TID *Enoxaparin/Lovenox 40 mg SQ daily (WT < 150 kg, CrCl > 30 mL/min) *Enoxaparin/Lovenox 30 mg SQ daily (WT < 150 kg, CrCl > 10-29 mL/min) *Enoxaparin/Lovenox 30 mg SQ BID (WT < 150 kg, CrCl > 30 mL/min) AND/OR *Sequential Compression Device (SCD) 5 or more Highest Order ONE of the following medications: *Heparin 5000 units SQ TID (Preferred with Epidurals) *Enoxaparin/Lovenox 40 mg SQ daily (WT < 150 kg, CrCl > 30 mL/min) *Enoxaparin/Lovenox 30 mg SQ daily (WT < 150 kg, CrCl > 10-29 mL/min) *Enoxaparin/Lovenox 30 mg SQ BID (WT < 150 kg, CrCl > 30 mL/min) AND *Sequential Compression Device (SCD) Assessment and Plan Assessment and Plan Left knee pain with large suprapatellar joint effusion X-ray indicates large joint effusion, ultrasound does not indicate any DVT Orthopedist was consulted for recommendations. Dr. Newsome indicating that patient will require aspiration by radiology due to patient has an history of complete knee replacement Dr. Newsome requesting the patient be transferred to the main hospital so radiology can do procedure Radiologist consulted for knee aspiration. Fluid should be sent for culture and Gram stain, crystals, cell count Patient started on empirical Rocephin Continue pain control Physical therapy evaluation Hypertension, hyperlipidemia Home medications have been continued Vasotec, clonidine as needed DVT prevention Subcutaneous heparin Vijay Russell Oct 13, 2017 13:25
[2017-10-13 18:15] LABS: WBC, SYNOVIAL FLUID 19200 /MM3 (0-200)
[2017-10-14] VITALS: BP 113/56; PULSE 69; RESP 18; TEMP 96.5; O2SAT 98
[2017-10-14] MEDS ORDERED: TEMAZEPAM 7.5 MG CAP PO ONE (00:15)
[2017-10-14] MEDS: HEPARIN SODIUM - SQ 10,000 UNITS/ML VIAL SQ SCH ×2 (05:18→16:34)
[2017-10-14 07:00] LABS: AUTOMATED NEUTROPHIL # 6.4 TH/MM3 (1.8-7.7); BASOPHIL # 0.1 TH/MM3 (0-0.2); BASOPHIL % 0.8 % (0.0-2.0); EOSINOPHIL % 0.5 % (0.0-4.0); HEMATOCRIT 34.5 % (35.0-46.0); HEMOGLOBIN 10.9 GM/DL (11.6-15.3); LYMPH % 21.2 % (9.0-44.0); MEAN CELL VOLUME 86.3 FL (80.0-100.0); MEAN CORPUSCULAR HEMOGLOBIN 27.3 PG (27.0-34.0); MEAN CORPUSCULAR HGB CONC 31.7 % (32.0-36.0); MEAN PLATELET VOLUME 6.9 FL (7.0-11.0); MONO % 10.1 % (0.0-8.0); NEUT % 67.4 % (16.0-70.0); PLATELET COUNT 300 TH/MM3 (150-450); RED CELL DISTRIBUTION WIDTH 14.6 % (11.6-17.2); WHITE BLOOD COUNT 9.5 TH/MM3 (4.0-11.0)
[2017-10-14] MEDS ORDERED: TEMAZEPAM 7.5 MG CAP PO PRN (07:15)
[2017-10-14 07:16] LABS: CALCIUM 8.6 MG/DL (8.5-10.1)
[2017-10-14 07:20] LABS: CREATININE 0.72 MG/DL (0.50-1.00)
[2017-10-14 08:00] VITALS: BP 124/60; PULSE 67; RESP 16; TEMP 97.3; O2SAT 99
--- NOTE | 2017-10-14 08:09 | HHI.PR ---
Subjective Remarks Patient seen and examined today for follow-up on left knee pain, edema, unable to ambulate. Patient states that the pain has improved after the aspiration. Vital signs are stable, afebrile Objective Vital Signs Date Time Temp Pulse Resp B/P (MAP) Pulse Ox O2 Delivery O2 Flow Rate FiO2 10/14/17 00:00 96.5 69 18 113/56 (75) 98 10/13/17 20:00 96.2 79 18 132/59 (83) 93 10/13/17 14:56 98.2 74 18 141/77 (98) 99 10/13/17 12:29 161/94 (116) I/O 10/13/17 10/13/17 10/13/17 10/14/17 10/14/17 10/14/17 07:00 15:00 23:00 07:00 15:00 23:00 Intake Total 100 ml 120 ml Balance 100 ml 120 ml Intake Oral 120 ml IV Total 100 ml # Voids 1 Result Diagram: 10/14/17 0642 10/14/17 0642 Imaging Last Impressions Lower Extremity Ultrasound 10/12/172003 Signed Impressions: Service Date/Time: Thursday, October 12, 2017 21:17 - CONCLUSION: No evidence of deep venous thrombosis. Popliteal cyst on the left measuring 3.9 x 2.5 x 2.1 cm. Richmond Moore MD Knee X-Ray 10/12/172003 Signed Impressions: Service Date/Time: Thursday, October 12, 2017 20:34 - CONCLUSION: Large suprapatellar knee joint effusion. Richmond Moore MD Procedures 10/13/17 Left knee effusion aspiration Objective Remarks GENERAL: Well-developed, well-nourished, in no acute distress. alert and orientated HEENT: Head is normocephalic without any lesions or masses noted. Facial features are symmetric. Eyes: Extraocular muscles are intact. Conjunctivae were clear. NECK: Supple without any masses. Trachea midline no deviation. No JVD, CARDIAC: Regular rhythm, regular rate. S1/S2 are heard. 2/6 holosystolic murmur , no gallops or rubs. LUNGS: Clear to auscultation bilaterally. No wheeze, rhonchi or rales. No use of accessory muscles on inspiration or expiration. ABDOMEN: Soft, nontender. Nondistended. Bowel sounds heard in all 4 quadrants. No organomegaly or masses. Negative rebound, negative guarding EXTREMITIES: No edema, pulses are equal bilaterally. No cyanosis or clubbing. Left knee with palpable tenderness noted over the medial inferior patellar region NEUROLOGY: Mood and affect appear appropriate. Cranial nerves II through XII grossly intact. Moving all extremities, speech is clear A/P Assessment and Plan Left knee pain with large suprapatellar joint effusion X-ray indicates large joint effusion, ultrasound does not indicate any DVT Orthopedist was consulted for recommendations. Dr. Newsome indicating that patient will require aspiration by radiology due to patient has an H/O complete knee replacement S/P knee aspiration by radiology Fluid should be sent for culture and Gram stain, crystals, cell count Patient started on empirical Rocephin Continue pain control Physical therapy evaluation, recommending Rehab Discussed with orthopedist who indicated that could be a hematoma. Continue monitor culture and if any growth will require surgery, otherwise conservative management Hypertension, hyperlipidemia Home medications have been continued Vasotec, clonidine as needed DVT prevention Subcutaneous heparin Discharge Planning Discharge planning in 24-48 hours depending on culture report in patient's response to treatment Vijay Russell Oct 14, 2017 08:09
[2017-10-14] MEDS: cefTRIAXone INJ 1,000 MG in SODIUM CHLORIDE 0.9% INJ 100 ML IV SCH (09:22)
[2017-10-14] MEDS: MORPHINE SULFATE 2 MG/ML INJ IV PUSH PRN (09:22)
[2017-10-14] MEDS: CITALOPRAM HYDROBROMIDE 20 MG TAB PO SCH (09:22)
[2017-10-14] MEDS: PRAVASTATIN SOD 40 MG TAB PO SCH (09:22)
[2017-10-14] MEDS: DOCUSATE SODIUM 50 MG/SENNA 8.6 MG TAB PO SCH ×2 (09:23→20:46)
[2017-10-14] MEDS: SODIUM CHLORIDE 0.9% FLUSH 10 ML FLUSH IV FLUSH SCH ×2 (09:23→20:46)
[2017-10-14] MEDS: PANTOPRAZOLE SOD 20 MG DELAYED RELEASE TAB PO SCH (09:23)
[2017-10-14] MEDS: LOSARTAN 25 MG TAB PO SCH (09:23)
[2017-10-14 12:00] VITALS: BP 149/64; PULSE 71; RESP 12; TEMP 97.6; O2SAT 100
--- NOTE | 2017-10-14 14:55 | MB ---
cc: ELSA PORRAS DATE OF CONSULTATION: 10/14/2017. REASON FOR CONSULTATION: Left knee pain. HISTORY OF PRESENT ILLNESS: The patient is an 86-year-old female who underwent a left total knee arthroplasty which sounds uncomplicated from Dr. Stan Fuller. The patient says that the surgery itself was successful and has reduced pain. She has had routine follow up with Dr. Fuller, the most recent was in September of this year. The patient says that she has had some recent problems with the knee, specifically she said that she started developing pain around the knee in August of 2017. The patient went to an urgent care and she was told that there was an infection and was given steroids. She says that she was not given any antibiotics. She says the steroids did help the knee in the past. The patient at the most recent follow up with her orthopedic surgeon said that he would see her back in two years as they did not find anything overtly wrong. The patient says that she has developed swelling and pain about the knee recently. She denies any fevers or drainage about the knee. The patient denies having specific type of injury. She denies being on a blood thinner. The patient was admitted to [facility]. We reviewed the images. I did recommend to have the knee aspirated by the radiologist, which was completed. The radiologist contacted me on the phone and told me they were only able to get a small amount of fluid out and that there were loculations within the knee but the fluid generally looked fairly bloody. This was sent for a cell count, Gram stain, culture. REVIEW OF SYSTEMS: A twelve-point review of systems is negative except as noted in the history of present illness. PAST MEDICAL HISTORY: 1. Hypertension. 2. Hyperlipidemia. 3. Arthritis. 4. Syncope. 5. Vertigo. PAST SURGICAL HISTORY: 1. Bilateral knee replacement. 2. Breast biopsy. 3. Appendectomy. 4. Tonsillectomy. 5. Cataract surgery. 6. Melanoma. MEDICATIONS: See the chart. ALLERGIES: SEE THE CHART. SOCIAL HISTORY: The patient does not smoke or drink alcohol. FAMILY HISTORY: Family history is noncontributory. PHYSICAL EXAMINATION: VITAL SIGNS: Vitals show T-max of 98.2 over the last 24 hours. Her pulse is 67, respirations 16, blood pressure 124/60, pulse oximetry is 99%. GENERAL: She is Awake, alert and oriented times three. She has normal affect, insight and judgment. She has a friend at the bedside. She is in no acute distress. No diaphoresis. HEAD, EYES, EARS, NOSE, THROAT: Her head is atraumatic. Oropharynx is moist. Extraocular muscles are intact. NECK: The neck is supple. HEART: Regular rate and rhythm. LUNGS: The lungs show no audible wheeze with normal inspiratory effort. BACK: No costovertebral angle tenderness. ABDOMEN: The abdomen is soft, nontender and nondistended. EXTREMITIES: Examination of bilateral upper extremities shows good range of motion and normal alignment. Examination of the left lower extremity shows that she has a well-healed anterior incision. There are a couple of band-aids on the knee from the aspiration. There is generalized warmth about the leg but no focal warmth about the knee specifically. There is no fluctuance. It is actually difficult to tell whether she has an effusion or not because she does have some obese body habitus. Knee range of motion is limited. She can fully extend the knee to 0 degrees. She does have some weakness generalized about the leg but this could be more generalized about the lower extremities. She moves the toes well on the left foot. She has 2+ dorsalis pedis pulse. There is no erythema noted about the left leg. LABORATORY STUDIES: Laboratory studies show that the patient initially on October 12 had a white cell count of 16 and a neutrophil elevation of 72.3% but then today her white cell count is down to 9.5 with no shift in the neutrophils at 67.4. Her erythrocyte sedimentation rate is only 11 with the upper limit of normal being 30. Aspiration results showing aspiration of the left knee shows white cell count of 19,200 and synovial red blood cell count of 3,756,000 with synovial neutrophils of 76. There were no crystals. Microbiology shows gram stain and cultures are pending. IMAGING STUDIES: X-rays are reviewed. I reviewed the report as well. She has a left total knee arthroplasty which is in good position. No obvious complications are noted such as definitive signs of loosening or fracture. She does have what appears to be a large joint effusion. IMPRESSION: 1. Left knee status post total knee arthroplasty performed by Dr. Fuller in the year 1999 with routine follow up by that orthopedic surgeon. 2. Left knee recent swelling, possibly hemarthrosis based on the aspiration, rule out septic knee. DECISION-MAKING: I discussed the diagnosis with the patient. Based on the laboratory analysis, she does have an increased white cell count in the fluid; however, there are many more red cells than white cells. Her laboratory values are somewhat suspicious given the fact that she had an elevated white count, although it seemed to drop very rapidly with a normal erythrocyte sedimentation rate, which would be unusual to have a normal erythrocyte sedimentation rate if this was a septic joint. At this point, I still have a somewhat low suspicion for an infected total knee, although it is still possible there could be a low level infection within the joint. I do feel it is appropriate for the admitting physician to follow up the finalized cultures. If ultimately the cultures do come back positive for infection, then I do recommend for them to consult Dr. Fuller as soon as possible for management of the knee replacement. At this point, I do not see need for acute emergent surgical management for the left knee. If the cultures do come back negative, I do recommend for the patient to follow up with Dr. Fuller as an outpatient, and I did express this to the patient that since she is having some complications associated with the knee replacement, it would be appropriate for the indexed physician to follow this and help with definitive management. Thank you for allowing me to participate in the care of this patient. Elsa Porras MD /SHERIDAN /1:28 PM /2:31 PM
[2017-10-14 18:00] VITALS: BP 136/62; PULSE 73; RESP 14; TEMP 98.7; O2SAT 98
[2017-10-14 20:00] VITALS: BP 128/80; PULSE 75; RESP 20; TEMP 97.4; O2SAT 98
[2017-10-15] VITALS: BP 139/72; PULSE 75; RESP 20; TEMP 97.3; O2SAT 99
[2017-10-15] MEDS: HEPARIN SODIUM - SQ 10,000 UNITS/ML VIAL SQ SCH ×2 (04:59→17:02)
[2017-10-15] MEDS: MORPHINE SULFATE 2 MG/ML INJ IV PUSH PRN (06:49)
[2017-10-15 08:00] VITALS: BP 181/74; PULSE 75; RESP 14; TEMP 96.6; O2SAT 99
[2017-10-15] MEDS: SODIUM CHLORIDE 0.9% FLUSH 10 ML FLUSH IV FLUSH SCH (08:47)
[2017-10-15] MEDS: cefTRIAXone INJ 1,000 MG in SODIUM CHLORIDE 0.9% INJ 100 ML IV SCH (08:48)
[2017-10-15] MEDS: PANTOPRAZOLE SOD 20 MG DELAYED RELEASE TAB PO SCH (08:49)
[2017-10-15] MEDS: DOCUSATE SODIUM 50 MG/SENNA 8.6 MG TAB PO SCH (08:49)
[2017-10-15] MEDS: PRAVASTATIN SOD 40 MG TAB PO SCH (08:49)
[2017-10-15] MEDS: LOSARTAN 25 MG TAB PO SCH (08:49)
[2017-10-15] MEDS: CITALOPRAM HYDROBROMIDE 20 MG TAB PO SCH (08:50)
[2017-10-15] MEDS ORDERED: FUROSEMIDE 20 MG TAB PO SCH (09:00)
[2017-10-15] MEDS ORDERED: POTASSIUM CHLORIDE 10 MEQ CONTROLLED RELEASE TAB PO SCH (09:00)
--- NOTE | 2017-10-15 09:30 | RADRPT ---
EXAM DATE/TIME: 10/13/2017 15:06 [place] COMPARISON: No previous studies available for comparison. INDICATIONS : Patient with 8 yr old knee replacment in extreme pain 10/10.Swelling and can't bear weight. MEDICAL HISTORY : 1. HTN 2. hyperlipidemia 3. vertigo 4. arthritis SURGICAL HISTORY : 1. bilateral knee replacements 2.breast bx 3. appendectomy 4. tonsillectomy 5. cataract surgery 6. melanoma ENCOUNTER: Initial ACUITY: 1 week PAIN SCORE: 10/10 LOCATION: Left knee FLUORO TIME: 1.5 minutes IMAGE SERIES: DEVICE(S): 18 gauge needle was placed into the left knee joint. RESPONSE: Pre procedure pain level was 10/10 FLUID: Total volume of1 cc of cloudy red fluid was removed. Fluid specimen was submitted to the lab for evaluation. PROCEDURE : 1. Fluoroscopically guided left knee aspiration. The risks, benefits and alternatives to the procedure were explained and verbal and written consent w as obtained. The site was prepped in sterile fashion. Full sterile technique was used, including ca p, mask, sterile gloves and gown and a large sterile sheet. Hand hygiene and 2% chlorhexidine and/or betadine/alcohol prep was utilized per protocol for cutaneous antisepsis. The skin and subcutaneous tissues were infiltrated with local anesthetic solution. The patient tolerated the procedure well and there were no complications. CONCLUSION: Uncomplicated aspiration as above. Se Tatum MD on October 15, 2017 at 9:23 Board Certified Radiologist. This report was verified electronically.
--- NOTE | 2017-10-15 11:25 | HHI.DCPOC ---
Discharge Care Plan Diagnosis: (1) Effusion, left knee (2) Inability to walk Goals to Promote Your Health * To prevent worsening of your condition and complications * To maintain your health at the optimal level Directions to Meet Your Goals Take your medications as prescribed Follow your dietary instruction Follow activity as directed Keep your appointments as scheduled Take your immunizations and boosters as scheduled If your symptoms worsen call your PCP, if no PCP go to Urgent Care Center or Emergency Room Smoking is Dangerous to Your Health. Avoid second hand smoke Call the 24-hour hour crisis hotline for domestic abuse at Vijay Russell Oct 15, 2017 11:25
[2017-10-15 12:00] VITALS: BP 129/58; PULSE 69; RESP 18; TEMP 96.9; O2SAT 100
[2017-10-15] MEDS ORDERED: WHEEMIS3 (12:33)
--- NOTE | 2017-10-15 12:53 | HHI.FF ---
Face to Face Verification Diagnosis: (1) Effusion, left knee (2) Knee pain, left (3) Inability to walk Physical Therapy Order: Evaluate and Treat, Improve ambulation, Strength and gait training Home Health Nursing Order: Medical education Signs/symptoms of disease process Nursing assessment with vital signs I have seen patient Ivette Ha on 10/15/17. My clinical findings support the need for the requested home health care services because: Deconditioned w/ increased weakness Limited ability to care for self I certify that my clinical findings support that this patient is homebound because: Unsteady gait/balance Unsafe to leave home unassisted Vijay Russell Oct 15, 2017 12:53
--- NOTE | 2017-10-15 12:56 | HHI.DS ---
Discharge Summary Admission Date Oct 14, 2017 at 10:50 Discharge Date: Oct 15, 2017 Admitting Diagnosis intractable pain, unable to walk (1) Effusion, left knee ICD Code: M25.462 - Effusion, left knee Diagnosis: Principal (2) Inability to walk ICD Code: R26.2 - Difficulty in walking, not elsewhere classified Diagnosis: Principal Status: Acute Procedures Left knee effusion aspiration by radiology Brief History - From Admission This is a 86-year-old female with known history of hypertension, hyperlipidemia , arthritis history of vertigo, history of syncope who presented to hospital because of left knee pain. Patient states that she has been experiencing left knee pain which she described as severe shooting pain as a 10/10 on a pain scale. Patient states the last few days she has been resting her knee with having elevated. She does live at an [facility] [place] which he may try to help her get up yesterday but she could not bear weight because the pain was so severe. Because he cannot ambulate they brought her to the hospital for evaluation. Patient had workup done with x-ray that did show significant effusion in it was recommended by the ER physician that the patient be observed for further recommendations. Patient indicates that her last surgery was 8 years ago for her left knee replacement Dr. Fuller. She indicates the last year she has 3 episodes of the same symptoms with increased pain, edema. One episode right around Christmastime she was told that she had an infection and was started on steroids. Her knee didn't improve. She did have follow-up with Dr. Swann sent in September in which he indicated that she was okay and we'll see her back again in 2 years. At the present time she does have significant pain. Unable to ambulate. CBC/BMP: 10/14/17 0642 10/14/17 0642 Significant Findings Laboratory Tests Test 10/12/17 22:55 10/13/17 07:37 10/13/17 15:50 10/14/17 06:42 White Blood Count 16.0 TH/MM3 (4.0-11.0) Neutrophils (%) (Auto) 72.3 % (16.0-70.0) 87.2 % (16.0-70.0) Neutrophils # (Auto) 11.6 TH/MM3 (1.8-7.7) 8.3 TH/MM3 (1.8-7.7) Monocytes # (Auto) 1.0 TH/MM3 (0-0.9) 1.0 TH/MM3 (0-0.9) Random Glucose 128 MG/DL (74-106) 150 MG/DL (74-106) Sodium Level 132 MEQ/L (136-145) 132 MEQ/L (136-145) 134 MEQ/L (136-145) Estimat Glomerular Filtration Rate 63 ML/MIN (>89) 71 ML/MIN (>89) 77 ML/MIN (>89) Mean Platelet Volume 6.6 FL (7.0-11.0) 6.9 FL (7.0-11.0) Chloride Level 97 MEQ/L (98-107) Synovial Fluid Color RED (STRAW) Synovial Fluid Appearance BLOODY (CLEAR) Synovial Fluid WBC 00232 /MM3 (0-200) Synovial Fluid RBC 3929806 /MM3 (0-0) Synovial Fluid Neutrophils 78 % (0-25) Hemoglobin 10.9 GM/DL (11.6-15.3) Hematocrit 34.5 % (35.0-46.0) Mean Corpuscular Hemoglobin Concent 31.7 % (32.0-36.0) Monocytes (%) (Auto) 10.1 % (0.0-8.0) Blood Urea Nitrogen 19 MG/DL (7-18) Imaging Last Impressions Aspiration 10/13/17 Signed Impressions: Service Date/Time: Friday, October 13, 2017 15:06 - CONCLUSION: Uncomplicated aspiration as above. Se Tatum MD Lower Extremity Ultrasound 10/12/172003 Signed Impressions: Service Date/Time: Thursday, October 12, 2017 21:17 - CONCLUSION: No evidence of deep venous thrombosis. Popliteal cyst on the left measuring 3.9 x 2.5 x 2.1 cm. Richmond Moore MD Knee X-Ray 10/12/172003 Signed Impressions: Service Date/Time: Thursday, October 12, 2017 20:34 - CONCLUSION: Large suprapatellar knee joint effusion. Richmond Moore MD Hospital Course 86-year-old female who originally presented to the hospital on 10/13/17 because she is having significant pain in her left knee with swelling. Patient had workup done in the emergency department and found to have a rather large joint effusion. Patient is complicated by total knee replacement. Patient was admitted to the hospital with orthopedic consultation. Orthopedist recommended radiology perform joint aspiration secondary to complexity of her total knee replacement. Intervention radiology did perform the aspiration which did indicate hemarthrosis. Culture was taken which did not show any organism and is no growth for 24 hours at this time. Patient was started on empirical antibiotics include cefepime which has been discontinued at this time. Patient indicates that she has had previous episodes of this knee pain and effusion. Patient just saw her regular orthopedist Dr. Fuller in September who is clear or two-year follow-up. However in light of the patient's new hemarthrosis. Patient will need close follow-up in outpatient setting. At present time physical therapy has evaluated patient and indicated that the patient can return home with home health care. Patient clinically stable this time. Will plan discharge home accordingly. Pt Condition on Discharge: Stable Discharge Disposition: [facility] with [facility] Discharge Time: > 30 minutes Discharge Instructions DIET: Follow Instructions for: Heart Healthy Diet Activities you can perform: Regular-No Restrictions Activities to Avoid: Driving for 24 hrs Follow up Referrals: Orthopedics - 1 Week with Mike Fuller MD ([place]) PCP Follow-up - 1 Week New Medications: Wheelchair (Wheelchair) 1 Mis Mis EA .XX DIRECTED, #1 0 Refills Continued Medications: Calcium Carb,Gluc/Mag Ox,Gluc (Calcium Magnesium Caplet) 500 Mg Calcium-250 Mg Tablet 1 TAB PO DAILY Citalopram (Citalopram) 10 Mg Tab 10 MG PO DAILY for Control Depression, #30 TAB 0 Refills Furosemide (Furosemide) 20 Mg Tab 20 MG PO EVERY OTHER DAY, #30 TAB 0 Refills Losartan (Losartan) 25 Mg Tab 25 MG PO DAILY for Blood Pressure Management, #30 TAB 0 Refills Lovastatin (Lovastatin) 40 Mg Tab 40 MG PO DAILY for Cholesterol Management, #30 TAB 0 Refills Multiple Vitamins W/ Minerals (Ocuvite) 1 Tab 1 TAB PO DAILY for Nutritional Supplement, TAB 0 Refills Omeprazole (Omeprazole) 20 Mg Tab 20 MG PO DAILY, #30 TAB 0 Refills Potassium Chloride ER (Potassium Chloride ER) 10 Meq Cap 10 MEQ PO EVERY OTHER DAY for Electrolyte Replacement, #30 CAP 0 Refills Vijay Russell Oct 15, 2017 12:56
[2017-10-15] MEDS ORDERED: NORC5TAB PO (13:12)
[2017-10-15] MEDS ORDERED: ACETAMINOPHEN/HYDROcodone 325 MG/5 MG TAB PO PRN (13:15)
[2017-10-15 16:00] VITALS: BP 122/53; PULSE 73; RESP 20; TEMP 97.5; O2SAT 96
== END 2017-10-15 17:20 | DRG 565 ==
LOC: PHED 18:18 → PHEDA 10-13 04:42 → PH3A 10-13 06:34 → OBSVTOIN 10-14 10:50
PROVIDERS: ADMIT Hospitalist; ATTEND Hospitalist
PROC: 0S9D3ZZ Drainage of Left Knee Joint, Percutaneous Approach (ICD-10-PCS; principal; 2017-10-15)
DX: M25.462 Effusion, left knee (principal); M25.00 Hemarthrosis, unspecified joint; Z96.653 Presence of artificial knee joint, bilateral; R26.2 Difficulty in walking, not elsewhere classified; I10 Essential (primary) hypertension; E78.5 Hyperlipidemia, unspecified; M19.90 Unspecified osteoarthritis, unspecified site; H91.90 Unspecified hearing loss, unspecified ear; Z85.820 Personal history of malignant melanoma of skin
CPT/HCPCS: 20610; 73564; 77002; 80048; 80053; 82945; 84157; 85025; 85652; 87070; 87205; 89051; 89060; 93971; 96365; 96372; 96375; 96376; G0378; G8987-GP; G8988-GP; J0696; J1644; J2270; J7512

== ENCOUNTER 2017-11-03 15:43 | Observation (INO) | payer MEDICARE ==
[~2017-11-03] VITALS: Ht 165.1 cm; Wt 72.6 kg
[~2017-11-03 15:43] MED LIST changes: -B/P MED; +CALC500T55 PO; -CHOLESTEROL MED; +CITA10TA4 PO; +FURO20TA PO; +LOSA25TA PO; +LOVA40TA PO; -MECL-62 PO; +NORC5TAB PO; +OCUVTAB PO; +OMEP20TA93 PO; +POTA10CA PO; +WHEEMIS3
[2017-11-03 15:47] VITALS: BP 212/81; PULSE 68; RESP 20; TEMP 98.5; O2SAT 100
[2017-11-03] MEDS ORDERED: CEPH500C PO (15:56)
[2017-11-03] MEDS ORDERED: HYDROmorphone HCL PF 1 MG/ML VIAL IV PUSH ONE (16:15)
[2017-11-03] MEDS ORDERED: ONDANSETRON HCL 4 MG/2 ML VIAL IV PUSH ONE (16:15)
--- NOTE | 2017-11-03 16:23 | PD ---
HPI Chief Complaint: Edema Time Seen by Provider: 16:12 Travel History International Travel<30 days: No Contact w/Intl Traveler<30days: No Traveled to known affect area: No History of Present Illness HPI Patient presents with complaints of left knee pain. States she had a knee replacement in 2007, since then she has intermittent swelling and severe pain that is uncontrolled with her home pain medication. She does live in assisted living. States she is unable to ambulate. Denies any fall or misstep. Reports evaluation by orthopedic 2 days ago with aspiration of effusion. PFSH Past Medical History Hx Anticoagulant Therapy: No Arthritis: Yes Blood Disorders: No Heart Rhythm Problems: No Cancer: No Cardiovascular Problems: Yes (HTN, CHOL) High Cholesterol: Yes Chest Pain: Yes Congestive Heart Failure: No Diabetes: No Diminished Hearing: Yes (STS SHE WEARS BILAT HEARING) Endocrine: No Gastrointestinal Disorders: Yes (GI BLEED) Genitourinary: No Hypertension: Yes Immune Disorder: No Implanted Vascular Access Dvce: Yes Musculoskeletal: Yes Neurologic: Yes Psychiatric: No Reproductive: No Respiratory: No Tetanus Vaccination: > 5 Years Influenza Vaccination: Yes ?: Not Menopausal: Yes Past Surgical History Abdominal Surgery: Yes (APPENDECTOMY (CHILDHOOD)) AICD: No Appendectomy: Yes (childhood) Arteriovenous Shunt: No Cardiac Surgery: Yes Ear Surgery: No Endocrine Surgery: No Eye Surgery: No Genitourinary Surgery: No Gynecologic Surgery: No Insulin Pump: No Joint Replacement: Yes (bilateral knee) Oral Surgery: Yes (T&A (CHILDHOOD)) Pacemaker: No Thoracic Surgery: No Tonsillectomy: Yes Other Surgery: Yes (BREAST BX X 2) Social History Alcohol Use: Yes (Occ.) Tobacco Use: No Substance Use: No Allergies-Medications (Allergen,Severity, Reaction): Coded Allergies: diclofenac (Unverified Allergy, Severe, SEVERE VOMITING, 11/03/17) paroxetine (Unverified Allergy, Unknown, 11/03/17) sertraline (Unverified Allergy, Unknown, 11/03/17) sulfamethoxazole (Unverified Allergy, Unknown, 11/03/17) trimethoprim (Unverified Allergy, Unknown, 11/03/17) Uncoded Allergies: PAIN MEDICATIONS (Allergy, Unknown, 09/16/16) Reported Meds & Prescriptions Reported Meds & Active Scripts Active Wheelchair (Device) 1 Mis Mis Ea .XX DIRECTED Reported Cephalexin 500 Mg Cap 500 Mg PO Q6H Losartan (Losartan Potassium) 25 Mg Tab 25 Mg PO DAILY Citalopram (Citalopram Hydrobromide) 10 Mg Tab 10 Mg PO DAILY Ocuvite (Multiple Vitamins W/ Minerals) 1 Tab 1 Tab PO DAILY Calcium Magnesium Caplet (Calcium Carb,Gluc/Mag Ox,Gluc) 500 Mg Calcium-250 Mg Tablet 1 Tab PO DAILY Omeprazole 20 Mg Tab 20 Mg PO DAILY Lovastatin 40 Mg Tab 40 Mg PO DAILY Potassium Chloride ER (Potassium Chloride) 10 Meq Cap 10 Meq PO EVERY OTHER DAY Furosemide 20 Mg Tab 20 Mg PO EVERY OTHER DAY Review of Systems General / Constitutional: No: Fever Eyes: No: Visual changes HENT: No: Headaches Cardiovascular: No: Chest Pain or Discomfort Respiratory: No: Shortness of Breath Gastrointestinal: No: Abdominal Pain Genitourinary: No: Dysuria Musculoskeletal: No: Pain Skin: No Rash Neurologic: No: Weakness Psychiatric: No: Depression Endocrine: No: Polydipsia Hematologic/Lymphatic: No: Easy Bruising Physical Exam Narrative GENERAL: Well-nourished, well-developed patient. SKIN: Focused skin assessment warm/dry. HEAD: Normocephalic. EYES: No scleral icterus. No injection or drainage. NECK: Supple, trachea midline. No JVD or lymphadenopathy. CARDIOVASCULAR: Regular rate and rhythm without murmurs, gallops, or rubs. RESPIRATORY: Breath sounds equal bilaterally. No accessory muscle use. GASTROINTESTINAL: Abdomen soft, non-tender, nondistended. MUSCULOSKELETAL: No cyanosis, or edema. BACK: Nontender without obvious deformity. No CVA tenderness. Examination the left knee is difficult. Patient reports significant pain with any range of motion or palpation. There is some ecchymosis on the distal aspect of the patella Data Data Last Documented VS Vital Signs Date Time Temp Pulse Resp B/P (MAP) Pulse Ox O2 Delivery O2 Flow Rate FiO2 11/03/17 15:47 98.5 68 20 212/81 (124) 100 Orders Orders Ondansetron Inj (Zofran Inj) (11/03/17 16:15) Knee, Ltd (1 Or 2vws) (11/03/17 ) Hydromorphone Pf Inj (Dilaudid Pf Inj) (11/03/17 16:45) MDM Medical Decision Making Medical Screen Exam Complete: Yes Emergency Medical Condition: Yes Differential Diagnosis Malingering, left knee contusion, left knee sprain, fibula fracture, patella fracture Narrative Course Assessment and plan discussed with patient at bedside. Patient received Dilaudid with improvement of pain. Patient is unwilling/unable to ambulate. Last 72 hours Impressions Knee X-Ray 11/03/17 0000 Signed Impressions: Service Date/Time: Friday, November 03, 2017 16:22 - CONCLUSION: 1. No acute fracture or joint dislocation. 2. Joint effusion. This was recently aspirated. Cory Dillard MD Physician Communication Physician Communication Spoke with Dr Griggs who is in agreement will admit with case management consult for placement for jail facility Diagnosis Primary Impression: Intractable pain Additional Impression: Left knee pain Qualified Codes: M25.562 - Pain in left knee Adryan Moise MD Nov 03, 2017 16:23
--- NOTE | 2017-11-03 16:44 | RADRPT ---
EXAM DATE/TIME: 11/03/2017 16:22 [facility] COMPARISON: ASPIRATION, KNEE, LEFT, October 13, 2017, 15:06. KNEE LEFT LTD (1 OR 2VWS), January 10, 2010, 10:42. INDICATIONS : Left knee pain. No known injury. MEDICAL HISTORY : Arthritis. Hypercholesterolemia. Gastroesophageal reflux disease. Hypertension. SURGICAL HISTORY : Total knee replacement, left. Total knee replacement, right. Appendectomy.Tonsillectomy ENCOUNTER: Initial ACUITY: 1 day PAIN SCORE: 10/10 LOCATION: Left knee, entire FINDINGS: Two view examination of the left knee demonstrates no evidence of fracture or dislocation. There is a knee prosthesis in place. There is good position and alignment of the knee prosthesis. There is evid ence of a joint effusion. Patient recently had a left knee joint aspiration on 10/15/2017.. CONCLUSION: 1. No acute fracture or joint dislocation. 2. Joint effusion. This was recently aspirated. Cory Dillard MD on November 03, 2017 at 16:40 Board Certified Radiologist. This report was verified electronically.
[2017-11-03] MEDS ORDERED: HYDROmorphone HCL PF 2 MG/ML VIAL IV PUSH ONE (16:45)
[2017-11-03 18:20] VITALS: BP 178/78; PULSE 74; RESP 16; O2SAT 99
[2017-11-03 19:00] VITALS: BP 162/76; PULSE 79; RESP 16; O2SAT 96
[2017-11-03] MEDS ORDERED: LACTULOSE SYRUP 20 GM/30 ML CUP PO PRN (19:00)
[2017-11-03] MEDS ORDERED: MAGNESIUM HYDROXIDE SUSP 30 ML CUP PO PRN (19:00)
[2017-11-03] MEDS ORDERED: ENALAPRILAT 1.25 MG/ML VIAL IV PUSH PRN (19:00)
[2017-11-03] MEDS ORDERED: ONDANSETRON HCL 4 MG/2 ML VIAL IVP PRN (19:00)
[2017-11-03] MEDS ORDERED: BISACODYL 10 MG SUPP RECTAL PRN (19:00)
[2017-11-03] MEDS ORDERED: ACETAMINOPHEN/HYDROcodone 325 MG/5 MG TAB PO PRN (19:00)
[2017-11-03] MEDS ORDERED: NALOXONE HCL 0.4 MG/ML AMP IV PUSH PRN (19:00)
[2017-11-03] MEDS ORDERED: ACETAMINOPHEN 325 MG TAB PO PRN (19:00)
[2017-11-03] MEDS ORDERED: SENNOSIDES 8.6 MG TAB PO PRN (19:00)
[2017-11-03] MEDS ORDERED: MORPHINE SULFATE 2 MG/ML INJ IV PUSH PRN (19:30)
[2017-11-03] MEDS ORDERED: PILL SPLITTER OTHER PRN (19:30)
[2017-11-03 20:00] VITALS: BP 186/83; PULSE 78; RESP 20; TEMP 96.9; O2SAT 98
[2017-11-03 20:18] VITALS: BP 169/74
[2017-11-03] MEDS: LOSARTAN 25 MG TAB PO SCH (20:24)
[2017-11-03] MEDS: MORPHINE SULFATE 2 MG/ML INJ IV PUSH PRN (21:33)
[2017-11-03] MEDS: HEPARIN SODIUM - SQ 10,000 UNITS/ML VIAL SQ SCH (21:35)
[2017-11-03] MEDS: DOCUSATE SODIUM 50 MG/SENNA 8.6 MG TAB PO SCH (21:35)
[2017-11-03] MEDS: ACETAMINOPHEN/HYDROcodone 325 MG/7.5 MG TAB PO PRN (21:55)
[2017-11-03] MEDS ORDERED: KETOROLAC TROMETHAMINE 30 MG/ML (IVP) VIAL IV PUSH ONE (22:30)
[2017-11-03] MEDS ORDERED: FAMOTIDINE 20 MG TAB PO ONE (22:30)
[2017-11-03] MEDS ORDERED: diphenhydrAMINE HCL 25 MG CAP PO ONE (23:45)
[2017-11-04] VITALS: BP 193/88; PULSE 87; RESP 20; TEMP 97.6; O2SAT 95
[2017-11-04 04:00] VITALS: BP 153/68; PULSE 72; RESP 20; TEMP 97.2; O2SAT 98
[2017-11-04] MEDS: ACETAMINOPHEN/HYDROcodone 325 MG/7.5 MG TAB PO PRN ×2 (04:58→21:23)
[2017-11-04] MEDS: HEPARIN SODIUM - SQ 10,000 UNITS/ML VIAL SQ SCH ×3 (04:59→21:24)
[2017-11-04] MEDS: MORPHINE SULFATE 2 MG/ML INJ IV PUSH PRN ×3 (06:13→18:39)
[2017-11-04 08:00] VITALS: BP 138/63; PULSE 66; RESP 24; TEMP 96.7; O2SAT 98
[2017-11-04] MEDS: CITALOPRAM HYDROBROMIDE 20 MG TAB PO SCH (08:13)
[2017-11-04] MEDS: LOSARTAN 25 MG TAB PO SCH (08:13)
[2017-11-04] MEDS: PANTOPRAZOLE SOD 20 MG DELAYED RELEASE TAB PO SCH (08:14)
[2017-11-04] MEDS: PRAVASTATIN SOD 40 MG TAB PO SCH (08:15)
[2017-11-04] MEDS: DOCUSATE SODIUM 50 MG/SENNA 8.6 MG TAB PO SCH ×2 (08:15→21:23)
[2017-11-04] MEDS: MULTIVITAMIN-OPHTHALMIC 1 TAB PO SCH (08:28)
[2017-11-04 08:55] LABS: CHLORIDE 98 MEQ/L (98-107); SODIUM (NA) 134 MEQ/L (136-145)
[2017-11-04 08:58] LABS: BICARBONATE 27.8 MEQ/L (21.0-32.0); BLOOD UREA NITROGEN 17 MG/DL (7-18); CALCIUM 8.5 MG/DL (8.5-10.1); GLUCOSE,RANDOM 93 MG/DL (74-106)
[2017-11-04 09:01] LABS: ALT (GPT) 9 U/L (10-53); AST (GOT) 8 U/L (15-37); CREATININE 0.88 MG/DL (0.50-1.00); GLOMERULAR FILTRATION RATE 61 ML/MIN (>89)
[2017-11-04 09:03] LABS: TOTAL BILIRUBIN ADULT 0.4 MG/DL (0.2-1.0); TOTAL PROTEIN 6.6 GM/DL (6.4-8.2)
[2017-11-04 09:04] LABS: ALKALINE PHOSPHATASE 54 U/L (45-117)
[2017-11-04 12:00] VITALS: BP 123/58; PULSE 70; RESP 20; TEMP 96.2; O2SAT 94
--- NOTE | 2017-11-04 13:39 | HHI.HP ---
HPI Service [facility] Primary Care Physician Non-Staff Admission Diagnosis Intractable pain/left knee pain/unable to ambulate Diagnoses: (1) Left knee pain (2) Effusion, left knee Chief Complaint: Left knee pain Travel History International Travel<30 Days: No Contact w/Intl Traveler <30 Da: No Traveled to Known Affected Are: No History of Present Illness This is a pleasant 86-year-old female patient with a known medical history of hypertension, hyperlipidemia who presented to the ED with complaints of left knee pain. Patient states that she had a left knee replacement in 2007. Since that time patient has intermittently complained of pain and swelling requiring home pain medications. Patient does live at assisted living, at baseline she uses a walker for ambulation. It was reported yesterday morning patient felt increasing pain and inability to ambulate after receiving a left knee aspiration for joint effusion by Dr. Fuller on . Patient reports that Dr. Fuller aspirated the effusion and the drainage was analyzed which was reportedly negative. Patient denies any recent illness including fever, chills, cough, shortness of breath, abdominal pain, nausea, vomiting, diarrhea or dysuria. Review of Systems Constitutional: DENIES: Fatigue, Fever, Chills Eyes: DENIES: Blurred vision, Diplopia Respiratory: DENIES: Cough, Sputum production Cardiovascular: DENIES: Chest pain Gastrointestinal: DENIES: Abdominal pain, Black stools, Constipation, Diarrhea , Nausea, Vomiting Musculoskeletal: COMPLAINS OF: Joint pain (Left knee), Joint Swelling (Left knee) Except as stated in HPI: all other systems reviewed are Neg Past Family Social History Past Medical History Hypertension Hyperlipidemia Bilateral hernia. History of GI bleed Past Surgical History Bilateral knee replacement Appendectomy Tonsillectomy Breast biopsy Reported Medications Active Wheelchair (Device) 1 Mis Mis Ea .XX DIRECTED Reported Cephalexin 500 Mg Cap 500 Mg PO Q6H Losartan (Losartan Potassium) 25 Mg Tab 25 Mg PO DAILY Citalopram (Citalopram Hydrobromide) 10 Mg Tab 10 Mg PO DAILY Ocuvite (Multiple Vitamins W/ Minerals) 1 Tab 1 Tab PO DAILY Calcium Magnesium Caplet (Calcium Carb,Gluc/Mag Ox,Gluc) 500 Mg Calcium-250 Mg Tablet 1 Tab PO DAILY Omeprazole 20 Mg Tab 20 Mg PO DAILY Lovastatin 40 Mg Tab 40 Mg PO DAILY Potassium Chloride ER (Potassium Chloride) 10 Meq Cap 10 Meq PO EVERY OTHER DAY Furosemide 20 Mg Tab 20 Mg PO EVERY OTHER DAY Allergies: Coded Allergies: diclofenac (Unverified Allergy, Severe, SEVERE VOMITING, 11/03/17) paroxetine (Unverified Allergy, Unknown, 11/03/17) sertraline (Unverified Allergy, Unknown, 11/03/17) sulfamethoxazole (Unverified Allergy, Unknown, 11/03/17) trimethoprim (Unverified Allergy, Unknown, 11/03/17) Uncoded Allergies: PAIN MEDICATIONS (Allergy, Unknown, 09/16/16) Active Ordered Medications Current Medications Medications (Trade) Dose Ordered Sig/Gus Route Start Time Stop Time Status Last Admin (CeleXA) 10 mg DAILY PO 11/04/17 09:00 11/04/17 08:13 (Lasix) 20 mg EVERY OTHER DAY PO 11/05/17 09:00 (Cozaar) 25 mg DAILY PO 11/03/17 19:00 11/04/17 08:13 (Pravachol) 40 mg DAILY PO 11/04/17 09:00 (Ocuvite) 1 tab DAILY PO 11/04/17 09:00 11/04/17 08:28 (KCl) 10 meq EVERY OTHER DAY PO 11/05/17 09:00 (Protonix) 20 mg DAILY PO 11/04/17 09:00 11/04/17 08:14 (Vasotec Inj) 1.25 mg Q6H PRN IV PUSH 11/03/17 19:00 11/03/17 21:33 ([place] 5-325 Mg) 1 tab Q4H PRN PO 11/03/17 19:00 ([place] 7.5-325 Mg) 1 tab Q4H PRN PO 11/03/17 19:00 11/04/17 04:58 (Morphine Inj) 1 mg Q4H PRN IV PUSH 11/03/17 19:30 (Morphine Inj) 2 mg Q4H PRN IV PUSH 11/03/17 19:30 11/04/17 14:23 (Tylenol) 650 mg Q4H PRN PO 11/03/17 19:00 (Zofran Inj) 4 mg Q6H PRN IVP 11/03/17 19:00 (Heparin Inj) 5,000 units Q8HR SQ 11/03/17 22:00 11/04/17 14:28 (Narcan Inj) 0.4 mg UNSCH PRN IV PUSH 11/03/17 19:00 (Maci-Colace) 1 tab BID PO 11/03/17 21:00 11/04/17 08:15 (Milk Of Magnesia Liq) 30 ml Q12H PRN PO 11/03/17 19:00 (Senokot) 17.2 mg Q12H PRN PO 11/03/17 19:00 (Dulcolax Supp) 10 mg DAILY PRN RECTAL 11/03/17 19:00 (Lactulose Liq) 30 ml DAILY PRN PO 11/03/17 19:00 (Pill Splitter) 1 ea UNSCH PRN OTHER 11/03/17 19:30 Family History Both maternal and paternal medical history significant for cardiovascular disease. Social History Denies any tobacco use, alcohol or illicit drug use. Physical Exam Vital Signs Vital Signs Date Time Temp Pulse Resp B/P (MAP) Pulse Ox O2 Delivery O2 Flow Rate FiO2 11/04/17 12:00 96.2 70 20 123/58 (79) 94 11/04/17 08:00 96.7 66 24 138/63 (88) 98 11/04/17 04:00 97.2 72 20 153/68 (96) 98 11/04/17 00:00 97.6 87 20 193/88 (123) 95 11/03/17 20:18 73 16 169/74 (105) 97 11/03/17 20:00 96.9 78 20 186/83 (117) 98 11/03/17 19:00 79 16 162/76 (104) 96 Room Air 11/03/17 19:00 16 96 Room Air 11/03/17 18:20 74 16 178/78 (111) 99 Room Air 11/03/17 17:10 16 11/03/17 15:47 98.5 68 20 212/81 (124) 100 Physical Exam GENERAL: Well-developed, well-nourished patient in [facility]. SKIN: Warm and dry. No rash. HEAD: Normocephalic. Atraumatic. EYES: Pupils equal and round. No scleral icterus. No injection or drainage. ENT: No nasal bleeding or discharge. Mucous membranes pink and moist. NECK: Supple. Trachea midline. CARDIOVASCULAR: Regular rate and rhythm. S1, S2 noted. No murmur appreciated. RESPIRATORY: No accessory muscle use. Clear to auscultation. Breath sounds equal bilaterally. GASTROINTESTINAL: Abdomen soft, non-tender, nondistended. Normoactive bowel sounds x4. MUSCULOSKELETAL: No obvious deformities. Extremities without clubbing, cyanosis , or edema. NEUROLOGICAL: Awake and alert. No obvious cranial nerve deficits. Motor grossly within normal limits. 5/5 muscle strength in bilateral upper and lower extremities. Normal speech. PSYCHIATRIC: Appropriate mood and affect; insight and judgment normal. Laboratory Laboratory Tests Test 11/04/17 07:39 11/04/17 13:19 Blood Urea Nitrogen 17 Creatinine 0.88 Random Glucose 93 Total Protein 6.6 Albumin 3.0 Calcium Level 8.5 Alkaline Phosphatase 54 Aspartate Amino Transf (AST/SGOT) 8 Alanine Aminotransferase (ALT/SGPT) 9 Total Bilirubin 0.4 Sodium Level 134 Potassium Level 3.8 Chloride Level 98 Carbon Dioxide Level 27.8 Anion Gap 8 Estimat Glomerular Filtration Rate 61 Result Diagram: 11/04/17 0739 Imaging Last Impressions Knee X-Ray 11/03/17 0000 Signed Impressions: Service Date/Time: Friday, November 03, 2017 16:22 - CONCLUSION: 1. No acute fracture or joint dislocation. 2. Joint effusion. This was recently aspirated. Cory Dillard MD Septic Shock Reassessment Septic shock perfusion: reassessment completed Caprini VTE Risk Assessment Caprini VTE Risk Assessment: Mod/High Risk (score >= 2) Caprini Risk Assessment Model Point Value = 1 Point Value = 2 Point Value = 3 Point Value = 5 Age 41-60 Minor surgery BMI > 25 kg/m2 Swollen legs Varicose veins or History of unexplained or recurrent spontaneous Oral contraceptives or hormone replacement Sepsis (< 1 month) Serious lung disease, including pneumonia (< 1 month) Abnormal pulmonary function Acute myocardial infarction Congestive heart failure (< 1 month) History of inflammatory bowel disease Medical patient at bed rest Age 61-74 Arthroscopic surgery Major open surgery (> 45 min) Laparoscopic surgery (> 45 min) Malignancy Confined to bed (> 72 hours) Immobilizing plaster cast Central venous access Age >= 75 History of VTE Family history of VTE Factor V Leiden Prothrombin [id number] Lupus anticoagulant Anticardiolipin antibodies Elevated serum homocysteine Heparin-induced thrombocytopenia Other congenital or acquired thrombophilia Stroke (< 1 month) Elective arthroplasty Hip, pelvis, or leg fracture Acute spinal cord injury (< 1 month) Prophylaxis Regimen Total Risk Factor Score Risk Level Prophylaxis Regimen 0-1 Low Early ambulation 2 Moderate Order ONE of the following: *Sequential Compression Device (SCD) *Heparin 5000 units SQ BID 3-4 Higher Order ONE of the following medications: *Heparin 5000 units SQ TID *Enoxaparin/Lovenox 40 mg SQ daily (WT < 150 kg, CrCl > 30 mL/min) *Enoxaparin/Lovenox 30 mg SQ daily (WT < 150 kg, CrCl > 10-29 mL/min) *Enoxaparin/Lovenox 30 mg SQ BID (WT < 150 kg, CrCl > 30 mL/min) AND/OR *Sequential Compression Device (SCD) 5 or more Highest Order ONE of the following medications: *Heparin 5000 units SQ TID (Preferred with Epidurals) *Enoxaparin/Lovenox 40 mg SQ daily (WT < 150 kg, CrCl > 30 mL/min) *Enoxaparin/Lovenox 30 mg SQ daily (WT < 150 kg, CrCl > 10-29 mL/min) *Enoxaparin/Lovenox 30 mg SQ BID (WT < 150 kg, CrCl > 30 mL/min) AND *Sequential Compression Device (SCD) Assessment and Plan Problem List: (1) Effusion, left knee ICD Code: M25.462 - Effusion, left knee Plan: Patient with left knee intractable pain and inability to ambulate upon presentation to the ED. Patient underwent recent aspiration of left knee joint effusion with increasing pain despite p.o. pain medications. Left knee x-ray reviewed showing joint effusion. No acute fracture. Knee is swollen and painful to range of motion. Morphine IV available per pain scale. As well as [place] p.o. available per pain scale. Consult placed to orthopedics, Dr. Fuller, appreciate further input recommendations. Spoke to Dr. Lu who is covering for the weekend states that he will be in tomorrow morning and will address consult. No new recommendations. Supportive care. (2) Hypertension ICD Code: I10 - Essential (primary) hypertension Plan: Blood pressure controlled. Continue home medications. Monitor BP trends. DVT prophylaxis: SCDs. Heparin. Problem Qualifiers (1) Left knee pain: Qualified Codes: M25.562 - Pain in left knee Jennifer Nelson Nov 04, 2017 13:39
[2017-11-04 13:40] LABS: AUTOMATED NEUTROPHIL # 9.2 TH/MM3 (1.8-7.7); BASOPHIL % 0.3 % (0.0-2.0); EOSINOPHIL # 0.1 TH/MM3 (0-0.4); EOSINOPHIL % 0.6 % (0.0-4.0); HEMATOCRIT 31.1 % (35.0-46.0); HEMOGLOBIN 9.9 GM/DL (11.6-15.3); LYMPH % 12.8 % (9.0-44.0); LYMPHOCYTE # 1.5 TH/MM3 (1.0-4.8); MEAN CELL VOLUME 86.3 FL (80.0-100.0); MEAN CORPUSCULAR HEMOGLOBIN 27.5 PG (27.0-34.0); MEAN CORPUSCULAR HGB CONC 31.9 % (32.0-36.0); MEAN PLATELET VOLUME 6.9 FL (7.0-11.0); MONOCYTE # 0.6 TH/MM3 (0-0.9); NEUT % 81.3 % (16.0-70.0); PLATELET COUNT 451 TH/MM3 (150-450); RED BLOOD COUNT 3.61 MIL/MM3 (4.00-5.30); RED CELL DISTRIBUTION WIDTH 15.1 % (11.6-17.2); WHITE BLOOD COUNT 11.4 TH/MM3 (4.0-11.0)
[2017-11-04 15:59] VITALS: BP 131/63; PULSE 75; RESP 20; TEMP 97.2; O2SAT 94
[2017-11-04 20:00] VITALS: BP 160/70; PULSE 74; RESP 17; TEMP 98.3; O2SAT 97
[2017-11-05] VITALS: BP 143/75; PULSE 69; RESP 16; TEMP 98; O2SAT 97
[2017-11-05] MEDS: MORPHINE SULFATE 2 MG/ML INJ IV PUSH PRN (03:31)
[2017-11-05] MEDS: HEPARIN SODIUM - SQ 10,000 UNITS/ML VIAL SQ SCH ×3 (05:50→22:22)
[2017-11-05] MEDS: ACETAMINOPHEN/HYDROcodone 325 MG/7.5 MG TAB PO PRN ×3 (05:50→22:22)
[2017-11-05 06:08] LABS: BASOPHIL % 0.3 % (0.0-2.0); EOSINOPHIL # 0.2 TH/MM3 (0-0.4); EOSINOPHIL % 1.3 % (0.0-4.0); HEMATOCRIT 29.6 % (35.0-46.0); HEMOGLOBIN 9.7 GM/DL (11.6-15.3); LYMPH % 18.2 % (9.0-44.0); LYMPHOCYTE # 2.2 TH/MM3 (1.0-4.8); MEAN CORPUSCULAR HEMOGLOBIN 28.4 PG (27.0-34.0); MEAN CORPUSCULAR HGB CONC 32.7 % (32.0-36.0); MEAN PLATELET VOLUME 6.9 FL (7.0-11.0); MONO % 7.1 % (0.0-8.0); MONOCYTE # 0.9 TH/MM3 (0-0.9); NEUT % 73.1 % (16.0-70.0); PLATELET COUNT 412 TH/MM3 (150-450); RED CELL DISTRIBUTION WIDTH 15.2 % (11.6-17.2); WHITE BLOOD COUNT 12.3 TH/MM3 (4.0-11.0)
[2017-11-05 07:50] VITALS: BP 136/61; PULSE 73; RESP 20; TEMP 97.4; O2SAT 95
--- NOTE | 2017-11-05 08:44 | HHI.PR ---
Subjective Remarks Follow-up left knee effusion. Patient seen and examined, still complains of left knee pain despite pain medications. Swelling still present. PT worked with patient today, limited range of motion both passive and active. Spoke to Dr. Fuller's office, awaiting callback from orthopedics. Vital signs are stable. Patient tolerating p.o. intake, denies any abdominal pain, nausea or vomiting. Objective Vitals Vital Signs Date Time Temp Pulse Resp B/P (MAP) Pulse Ox O2 Delivery O2 Flow Rate FiO2 11/05/17 07:50 97.4 73 20 136/61 (86) 95 11/05/17 00:00 98.0 69 16 143/75 (97) 97 11/04/17 20:00 98.3 74 17 160/70 (100) 97 11/04/17 15:59 97.2 75 20 131/63 (85) 94 11/04/17 12:00 96.2 70 20 123/58 (79) 94 I/O 11/04/17 11/04/17 11/04/17 11/05/17 11/05/17 11/05/17 06:59 14:59 22:59 06:59 14:59 22:59 Intake Total 240 ml 720 ml 180 ml Balance 240 ml 720 ml 180 ml Intake Oral 240 ml 720 ml 180 ml # Voids 1 1 Result Diagram: 11/05/17 0540 11/04/17 0739 Imaging Last Impressions Knee X-Ray 11/03/17 0000 Signed Impressions: Service Date/Time: Friday, November 03, 2017 16:22 - CONCLUSION: 1. No acute fracture or joint dislocation. 2. Joint effusion. This was recently aspirated. Cory Dillard MD Objective Remarks GENERAL: Well-developed, well-nourished patient in [facility]. SKIN: Warm and dry. No rash. HEAD: Normocephalic. Atraumatic. EYES: Pupils equal and round. No scleral icterus. No injection or drainage. ENT: No nasal bleeding or discharge. Mucous membranes pink and moist. NECK: Supple. Trachea midline. CARDIOVASCULAR: Regular rate and rhythm. S1, S2 noted. No murmur appreciated. RESPIRATORY: No accessory muscle use. Clear to auscultation. Breath sounds equal bilaterally. GASTROINTESTINAL: Abdomen soft, non-tender, nondistended. Normoactive bowel sounds x4. MUSCULOSKELETAL: No obvious deformities. Left knee swelling no erythema, minimal range of motion both active and passive. NEUROLOGICAL: Awake and alert. No obvious cranial nerve deficits. Motor grossly within normal limits. 5/5 muscle strength in bilateral upper and lower extremities. Normal speech. A/P Problem List: (1) Effusion, left knee ICD Code: M25.462 - Effusion, left knee Status: Acute Plan: Patient with left knee intractable pain and inability to ambulate upon presentation to the ED. Spoke to Dr. Fuller's office, records reviewed, there is no record of aspiration of left knee effusion. Patient has been reporting recent aspiration of left knee joint effusion last week. Patient still has complaints of pain. And limited range of motion both active and passive. PT is following. Will obtain left lower extremity ultrasound to rule out DVT. Continue to follow. Left knee x-ray reviewed showing joint effusion. No acute fracture. Knee is swollen and painful to range of motion. Morphine IV available per pain scale. As well as [place] p.o. available per pain scale. Supportive care. Spoke to Dr. Fuller at 1155 who was updated about patient's status. Patient reports aspiration from Dr. Fuller last week, although Dr. Fuller says he did not aspirate her left knee. Reports from 10/12/17 patient was admitted to the hospital and underwent aspiration of left knee joint by radiology. Fluid was sent and showing no growth or infection. Awaiting Dr. Fuller to come see patient today. (2) Hypertension ICD Code: I10 - Essential (primary) hypertension Plan: Blood pressure controlled. Continue home medications. Monitor BP trends. DVT prophylaxis: SCDs. Heparin. Assessment and Plan [address] Lyman, radiologist, who plans to do arthrocentesis of the left knee tomorrow. Continue pain control and PT. Jennifer Nelson Nov 05, 2017 08:44
[2017-11-05] MEDS: CITALOPRAM HYDROBROMIDE 20 MG TAB PO SCH (10:38)
[2017-11-05] MEDS: LOSARTAN 25 MG TAB PO SCH (10:38)
[2017-11-05] MEDS: PRAVASTATIN SOD 40 MG TAB PO SCH (10:38)
[2017-11-05] MEDS: FUROSEMIDE 20 MG TAB PO SCH (10:38)
[2017-11-05] MEDS: POTASSIUM CHLORIDE 10 MEQ CONTROLLED RELEASE TAB PO SCH (10:38)
[2017-11-05] MEDS: MULTIVITAMIN-OPHTHALMIC 1 TAB PO SCH (10:38)
[2017-11-05] MEDS: DOCUSATE SODIUM 50 MG/SENNA 8.6 MG TAB PO SCH ×2 (10:39→22:22)
[2017-11-05] MEDS: PANTOPRAZOLE SOD 20 MG DELAYED RELEASE TAB PO SCH (10:39)
[2017-11-05 11:33] VITALS: BP 146/65; PULSE 78; RESP 20; TEMP 96.9; O2SAT 97
--- NOTE | 2017-11-05 12:36 | PD.CONS ---
HPI Service [facility] Consult Requested By Reason for Consult Recurrent effusion, left knee. Primary Care Physician Non-Staff Admission Diagnosis Intractable pain/left knee pain/unable to ambulate Diagnoses: (1) Effusion, left knee (2) Hypertension Chief Complaint: Left knee pain. Recurrent effusion, left knee. History of Present Illness This 86-year-old woman is well known to me, having had a left total knee arthroplasty in 2007. She has been doing well over the past several years. Recently, she had been hospitalized at [facility] for an effusion in the left knee. She had an arthrocentesis under ultrasound with return of some bloody fluid. Apparently laboratory studies were benign. She was seen by the undersigned on 10/31/2017. At that time, she was found to have a small area of ecchymosis on the anteromedial aspect of the left knee with a minimal effusion. She had good motion and no significant tenderness. Subsequently, the patient has had spontaneous onset of swelling in her left knee. She does not recall any specific injury. She indicates that her daughter is coming down from [place] to move her back to [place] with her on . Past Family Social History Past Medical History Hypertension Hyperlipidemia Bilateral hernia. History of GI bleed Past Surgical History Bilateral knee replacement Appendectomy Tonsillectomy Breast biopsy Allergies: Coded Allergies: diclofenac (Unverified Allergy, Severe, SEVERE VOMITING, 11/03/17) paroxetine (Unverified Allergy, Unknown, 11/03/17) sertraline (Unverified Allergy, Unknown, 11/03/17) sulfamethoxazole (Unverified Allergy, Unknown, 11/03/17) trimethoprim (Unverified Allergy, Unknown, 11/03/17) Uncoded Allergies: PAIN MEDICATIONS (Allergy, Unknown, 09/16/16) Active Ordered Medications Current Medications Medications (Trade) Dose Ordered Sig/Gus Route Start Time Stop Time Status Last Admin (CeleXA) 10 mg DAILY PO 11/04/17 09:00 11/05/17 10:38 (Lasix) 20 mg EVERY OTHER DAY PO 11/05/17 09:00 2/26/18 10:38 (Cozaar) 25 mg DAILY PO 11/03/17 19:00 11/05/17 10:38 (Pravachol) 40 mg DAILY PO 11/04/17 09:00 11/05/17 10:38 (Ocuvite) 1 tab DAILY PO 11/04/17 09:00 11/05/17 10:38 (KCl) 10 meq EVERY OTHER DAY PO 11/05/17 09:00 11/05/17 10:38 (Protonix) 20 mg DAILY PO 11/04/17 09:00 11/05/17 10:39 (Vasotec Inj) 1.25 mg Q6H PRN IV PUSH 11/03/17 19:00 11/03/17 21:33 ([place] 5-325 Mg) 1 tab Q4H PRN PO 11/03/17 19:00 ([place] 7.5-325 Mg) 1 tab Q4H PRN PO 11/03/17 19:00 11/05/17 05:50 (Morphine Inj) 1 mg Q4H PRN IV PUSH 11/03/17 19:30 (Morphine Inj) 2 mg Q4H PRN IV PUSH 11/03/17 19:30 11/05/17 03:31 (Tylenol) 650 mg Q4H PRN PO 11/03/17 19:00 (Zofran Inj) 4 mg Q6H PRN IVP 11/03/17 19:00 11/05/17 11:55 (Heparin Inj) 5,000 units Q8HR SQ 11/03/17 22:00 11/05/17 05:50 (Narcan Inj) 0.4 mg UNSCH PRN IV PUSH 11/03/17 19:00 (Maci-Colace) 1 tab BID PO 11/03/17 21:00 11/05/17 10:39 (Milk Of Magnesia Liq) 30 ml Q12H PRN PO 11/03/17 19:00 (Senokot) 17.2 mg Q12H PRN PO 11/03/17 19:00 (Dulcolax Supp) 10 mg DAILY PRN RECTAL 11/03/17 19:00 (Lactulose Liq) 30 ml DAILY PRN PO 11/03/17 19:00 (Pill Splitter) 1 ea UNSCH PRN OTHER 11/03/17 19:30 Reported Meds & Active Scripts Active Wheelchair (Device) 1 Mis Mis Ea .XX DIRECTED Reported Cephalexin 500 Mg Cap 500 Mg PO Q6H Losartan (Losartan Potassium) 25 Mg Tab 25 Mg PO DAILY Citalopram (Citalopram Hydrobromide) 10 Mg Tab 10 Mg PO DAILY Ocuvite (Multiple Vitamins W/ Minerals) 1 Tab 1 Tab PO DAILY Calcium Magnesium Caplet (Calcium Carb,Gluc/Mag Ox,Gluc) 500 Mg Calcium-250 Mg Tablet 1 Tab PO DAILY Omeprazole 20 Mg Tab 20 Mg PO DAILY Lovastatin 40 Mg Tab 40 Mg PO DAILY Potassium Chloride ER (Potassium Chloride) 10 Meq Cap 10 Meq PO EVERY OTHER DAY Furosemide 20 Mg Tab 20 Mg PO EVERY OTHER DAY Family History Both maternal and paternal medical history significant for cardiovascular disease. Social History Denies any tobacco use, alcohol or illicit drug use. Physical Exam Vital Signs Vital Signs Date Time Temp Pulse Resp B/P (MAP) Pulse Ox O2 Delivery O2 Flow Rate FiO2 11/05/17 11:33 96.9 78 20 146/65 (92) 97 11/05/17 07:50 97.4 73 20 136/61 (86) 95 11/05/17 00:00 98.0 69 16 143/75 (97) 97 11/04/17 20:00 98.3 74 17 160/70 (100) 97 11/04/17 15:59 97.2 75 20 131/63 (85) 94 Physical Exam The left knee has intact skin however there is some ecchymosis on the anterior medial aspect of the knee and the peripatellar area. This seems to be slightly greater in amount of ecchymosis than it was when I saw her 5 days ago. Her neurovascular status is intact. There is a large effusion. There is some tenderness on attempted motion. There is no instability. Neurovascular status of the lower extremity is intact. Laboratory Laboratory Tests Test 11/04/17 13:19 11/05/17 05:40 White Blood Count 11.4 12.3 Red Blood Count 3.61 3.40 Hemoglobin 9.9 9.7 Hematocrit 31.1 29.6 Mean Corpuscular Volume 86.3 87.0 Mean Corpuscular Hemoglobin 27.5 28.4 Mean Corpuscular Hemoglobin Concent 31.9 32.7 Red Cell Distribution Width 15.1 15.2 Platelet Count 451 412 Mean Platelet Volume 6.9 6.9 Neutrophils (%) (Auto) 81.3 73.1 Lymphocytes (%) (Auto) 12.8 18.2 Monocytes (%) (Auto) 5.0 7.1 Eosinophils (%) (Auto) 0.6 1.3 Basophils (%) (Auto) 0.3 0.3 Neutrophils # (Auto) 9.2 9.0 Lymphocytes # (Auto) 1.5 2.2 Monocytes # (Auto) 0.6 0.9 Eosinophils # (Auto) 0.1 0.2 Basophils # (Auto) 0.0 0.0 CBC Comment DIFF FINAL DIFF FINAL Differential Comment Result Diagram: 11/05/17 0540 11/04/17 0739 Imaging Last 72 hours Impressions Knee X-Ray 11/03/17 0000 Signed Impressions: Service Date/Time: Sunday, November 03, 2017 16:22 - CONCLUSION: 1. No acute fracture or joint dislocation. 2. Joint effusion. This was recently aspirated. Cory Dillard MD Assessment & Plan Problem List: (1) Status post total left knee replacement ICD Codes: Z96.652 - Presence of left artificial knee joint Status: Chronic (2) Effusion, left knee ICD Codes: M25.462 - Effusion, left knee Status: Acute Assessment and Plan Arthrocentesis of the left knee by the interventional radiologist using ultrasound to aspirate the knee as dry as possible would be appropriate. If she then has a recurrence of her effusion, it might be appropriate for her to have an angiogram and possible embolization of any bleeder that might be causing a recurrent hemarthrosis. At this time, I do not think that surgical intervention would be appropriate. She may ambulate as tolerated at this time when her symptoms allow this. Mike Fuller MD ([place]) Nov 05, 2017 12:36
--- NOTE | 2017-11-05 13:57 | RADRPT ---
EXAM DATE/TIME: 11/05/2017 13:17 [facility] COMPARISON: US LEG LEFT VENOUS DOPPLER, October 12, 2017, 21:17. INDICATIONS : Left leg pain. MEDICAL HISTORY : Hypercholesterolemia. Hypertension. Arthritis. SURGICAL HISTORY : Tonsillectomy. Appendectomy. ENCOUNTER: Subsequent ACUITY: 2 weeks PAIN SCORE: 3/10 LOCATION: Left leg. TECHNIQUE: Venous ultrasound of the leg was performed from the inguinal ligament to the proximal calf. Real-gregg e, color Doppler and spectral tracing, compression and augmentation techniques were used. FINDINGS: There is 17 cm x 2.5 cm popliteal fluid collection, probably ruptured in popliteal cyst. There is no deep venous thrombosis. There is normal compressibility of the deep venous system from t he inguinal region to the proximal calf. No echogenic clot is seen in the lumen of the common femora l, femoral, popliteal, and posterior tibial veins. There is a normal response of the venous system t o proximal and distal augmentation and respiration. CONCLUSION: 1. No deep venous thrombosis. 2. Probable ruptured in popliteal cyst. Darwin Terry MD FACR on November 05, 2017 at 13:55 Board Certified Radiologist. This report was verified electronically.
[2017-11-05 15:12] VITALS: BP 139/58; PULSE 76; RESP 20; TEMP 96.3; O2SAT 94
[2017-11-05 20:00] VITALS: BP 124/59; PULSE 70; RESP 20; TEMP 97.7; O2SAT 95
[2017-11-06] VITALS: BP 126/60; PULSE 72; RESP 20; TEMP 97.4; O2SAT 96
[2017-11-06] MEDS ORDERED: LACTATED RINGER'S 1000 ML IV PRN (02:45)
[2017-11-06] MEDS: HEPARIN SODIUM - SQ 10,000 UNITS/ML VIAL SQ SCH ×3 (05:59→21:10)
[2017-11-06] MEDS: MULTIVITAMIN-OPHTHALMIC 1 TAB PO SCH (07:32)
[2017-11-06] MEDS: LOSARTAN 25 MG TAB PO SCH (07:32)
[2017-11-06] MEDS: CITALOPRAM HYDROBROMIDE 20 MG TAB PO SCH (07:33)
[2017-11-06] MEDS: PANTOPRAZOLE SOD 20 MG DELAYED RELEASE TAB PO SCH (07:33)
[2017-11-06] MEDS: DOCUSATE SODIUM 50 MG/SENNA 8.6 MG TAB PO SCH ×2 (07:33→21:10)
[2017-11-06 08:00] VITALS: BP 149/69; PULSE 74; RESP 16; TEMP 97.7; O2SAT 92
[2017-11-06] MEDS: MORPHINE SULFATE 2 MG/ML INJ IV PUSH PRN (08:36)
[2017-11-06] MEDS: PRAVASTATIN SOD 40 MG TAB PO SCH (09:00)
--- NOTE | 2017-11-06 11:18 | HHI.PR ---
Subjective Remarks Patient seen and examined today for follow-up on ambulate ambulate secondary to pain. Patient was just admitted began this month for the same thing in found to have a hematoma and joint space. Cultures were done which were negative for any infection. However patient did undergo outpatient physical therapy with improvement, however physical therapy was discontinued and now she is having difficulty ambulating and pain. Patient had further workup done in emergency department and again x-ray shows some joint effusion that was recently aspirated. Patient was admitted with pain control and orthopedic recommended radiology aspiration of the effusion. This was evaluated by Dr. López who indicated that there is a complex hypoechoic joint fluid. Fluid in the Arango cyst and likely extravasated fluid from the Arango cyst in the medial left calf. None of which are amenable to simple aspiration. Objective Vitals Vital Signs Date Time Temp Pulse Resp B/P (MAP) Pulse Ox O2 Delivery O2 Flow Rate FiO2 11/06/17 00:00 97.4 72 20 126/60 (82) 96 11/05/17 20:00 97.7 70 20 124/59 (80) 95 11/05/17 16:36 18 11/05/17 15:12 96.3 76 20 139/58 (85) 94 11/05/17 11:33 96.9 78 20 146/65 (92) 97 I/O 11/05/17 11/05/17 11/05/17 11/06/17 11/06/17 11/06/17 07:00 15:00 23:00 07:00 15:00 23:00 Intake Total 180 ml 540 ml Balance 180 ml 540 ml Intake Oral 180 ml 540 ml # Voids 1 # Bowel Movements 0 Result Diagram: 11/05/17 0540 11/04/17 0739 Objective Remarks GENERAL: Well-developed, well-nourished, in no acute distress. alert and orientated HEENT: Head is normocephalic without any lesions or masses noted. Facial features are symmetric. Eyes: Extraocular muscles are intact. Conjunctivae were clear. NECK: Supple without any masses. Trachea midline no deviation. No JVD, CARDIAC: Regular rhythm, regular rate. S1/S2 are heard. 2/6 holosystolic murmur , no gallops or rubs. LUNGS: Clear to auscultation bilaterally. No wheeze, rhonchi or rales. No use of accessory muscles on inspiration or expiration. ABDOMEN: Soft, nontender. Nondistended. Bowel sounds heard in all 4 quadrants. No organomegaly or masses. Negative rebound, negative guarding EXTREMITIES: No edema, pulses are equal bilaterally. No cyanosis or clubbing. Left knee with palpable tenderness noted over the medial inferior patellar region NEUROLOGY: Mood and affect appear appropriate. Cranial nerves II through XII grossly intact. Moving all extremities, speech is clear Urinary Catheter: No Vascular Central Line Catheter: No A/P Assessment and Plan Left knee pain with difficulty ambulating X-ray indicates joint effusion, ultrasound indicates probable ruptured popliteal cyst Orthopedist was consulted for recommendations. Indicated no surgical intervention. Possible interventional radiologist to aspirate the knee under ultrasound. Appropriate may need angiogram and possible embolization. We'll await further recommendations from orthopedist. Radiologist indicated possible drain insertion with TPA Physical therapy evaluation to evaluate patient recommending rehabilitation Hypertension, hyperlipidemia Home medications have been continued Vasotec, clonidine as needed DVT prevention Subcutaneous heparin Discharge Planning Case management consulted for discharge planning Vijay Russell Nov 06, 2017 11:18
--- NOTE | 2017-11-06 11:35 | RADRPT ---
EXAM DATE/TIME: 11/06/2017 12:36 [facility] COMPARISON: No previous studies available for comparison. INDICATIONS : Left leg arango cyst. MEDICAL HISTORY : Hypercholesterolemia. Hypertension. Arthritis. SURGICAL HISTORY : Tonsillectomy. Appendectomy. ENCOUNTER: Initial ACUITY: 1 day PAIN SCORE: 3/10 LOCATION: Left knee. AREA EVALUATED: Left knee and calf. FINDINGS: The patient's left knee was evaluated sonographically. There is complex fluid, presumed clotted blood , in the suprapatellar bursa, an elongated slightly greater than 7 cm complex collection in the media l left popliteal space consistent with Arango's cyst, also consistency suggestive of clotted blood. A separate fairly homogeneously hypoechoic collection extends down the medial left calf which is likely extravasated hemorrhagic fluid from Arango's cyst rupture. None of the fluid visualized is likely to be evacuated with any success utilizing an aspiration needle, rather drain placement potentially with irrigation and/or TPA instillation would likely be required. Aspiration was attempted earlier this m onth and only a small volume of bloody fluid could be aspirated. CONCLUSION: Complex hypoechoic joint fluid, fluid in Arango's cyst and likely extravasated fluid f rom Arango's cyst in the medial left calf. None of this appears amenable to simple aspiration. Nicholas López MD on November 06, 2017 at 11:17 Board Certified Radiologist. This report was verified electronically.
[2017-11-06 12:00] VITALS: BP 126/59; PULSE 74; RESP 16; TEMP 97.4; O2SAT 92
[2017-11-06] MEDS: traMADol HCL 50 MG TAB PO PRN ×2 (15:43→22:36)
[2017-11-06 16:00] VITALS: BP 162/75; PULSE 73; RESP 16; TEMP 98.2; O2SAT 96
[2017-11-06 20:00] VITALS: BP 125/66; PULSE 78; RESP 16; TEMP 98.6; O2SAT 93
[2017-11-06] MEDS ORDERED: PRAVASTATIN SOD 40 MG TAB PO SCH (21:00)
--- NOTE | 2017-11-06 22:09 | EKG ---
Date Performed: 11/06/2017 Time Performed: 03:56:17 PTAGE: 86 years EKG: Sinus rhythm MARKED LEFT AXIS DEVIATION ABNORMAL ECG PREVIOUS TRACING : 10/07/2016 08.38 Since the prior tracing, there has been no significant hernández DOCTOR: Cristino Gonzalez Interpretating Date/Time 11/06/2017 22:08:13
[2017-11-07] VITALS: BP 126/65; PULSE 76; RESP 18; TEMP 99; O2SAT 91
[2017-11-07] MEDS: HEPARIN SODIUM - SQ 10,000 UNITS/ML VIAL SQ SCH ×2 (06:10→14:32)
[2017-11-07] MEDS: traMADol HCL 50 MG TAB PO PRN (06:15)
[2017-11-07 08:00] VITALS: BP 175/75; PULSE 74; RESP 18; TEMP 97; O2SAT 95
[2017-11-07] MEDS: PANTOPRAZOLE SOD 20 MG DELAYED RELEASE TAB PO SCH (08:16)
[2017-11-07] MEDS: DOCUSATE SODIUM 50 MG/SENNA 8.6 MG TAB PO SCH (08:16)
[2017-11-07] MEDS: MULTIVITAMIN-OPHTHALMIC 1 TAB PO SCH (08:16)
[2017-11-07] MEDS: POTASSIUM CHLORIDE 10 MEQ CONTROLLED RELEASE TAB PO SCH (08:16)
[2017-11-07] MEDS: LOSARTAN 25 MG TAB PO SCH (08:16)
[2017-11-07] MEDS: FUROSEMIDE 20 MG TAB PO SCH (08:17)
[2017-11-07] MEDS: CITALOPRAM HYDROBROMIDE 20 MG TAB PO SCH (08:17)
--- NOTE | 2017-11-07 11:45 | HHI.PR ---
Subjective Remarks Patient seen and examined today for follow-up on knee pain. Patient states that pain has not significantly improved. But is controlled with by mouth pain medication. Daughter indicates that she spoke with orthopedist who plans to come in today to evaluate the patient and make recommendations. Discussed with family and patient about discharge planning. Patient would likely benefit from rehabilitation, however insurance will likely not cover. Objective Vitals Vital Signs Date Time Temp Pulse Resp B/P (MAP) Pulse Ox O2 Delivery O2 Flow Rate FiO2 11/07/17 08:00 97.0 74 18 175/75 (108) 95 11/07/17 00:00 99.0 76 18 126/65 (85) 91 11/06/17 20:00 98.6 78 16 125/66 (85) 93 11/06/17 16:00 98.2 73 16 162/75 (104) 96 11/06/17 12:00 97.4 74 16 126/59 (81) 92 I/O 11/06/17 11/06/17 11/06/17 11/07/17 11/07/17 11/07/17 06:59 14:59 22:59 06:59 14:59 22:59 # Voids 4 1 Result Diagram: 11/05/17 0540 11/04/17 0739 Objective Remarks GENERAL: Well-developed, well-nourished, in no acute distress. alert and orientated HEENT: Head is normocephalic without any lesions or masses noted. Facial features are symmetric. Eyes: Extraocular muscles are intact. Conjunctivae were clear. NECK: Supple without any masses. Trachea midline no deviation. No JVD, CARDIAC: Regular rhythm, regular rate. S1/S2 are heard. 2/6 holosystolic murmur , no gallops or rubs. LUNGS: Clear to auscultation bilaterally. No wheeze, rhonchi or rales. No use of accessory muscles on inspiration or expiration. ABDOMEN: Soft, nontender. Nondistended. Bowel sounds heard in all 4 quadrants. No organomegaly or masses. Negative rebound, negative guarding EXTREMITIES: No edema, pulses are equal bilaterally. No cyanosis or clubbing. Left knee with palpable tenderness noted over the medial inferior patellar region NEUROLOGY: Mood and affect appear appropriate. Cranial nerves II through XII grossly intact. Moving all extremities, speech is clear Urinary Catheter: No Vascular Central Line Catheter: No A/P Assessment and Plan Left knee pain with difficulty ambulating X-ray indicates joint effusion, ultrasound indicates probable ruptured popliteal cyst Orthopedist was consulted for recommendations. Indicated no surgical intervention. Possible interventional radiologist to aspirate the knee under ultrasound. Appropriate may need angiogram and possible embolization. Awaiting further recommendations from orthopedist. Radiologist indicated possible drain insertion with TPA Physical therapy evaluation to evaluate patient recommending rehabilitation Hypertension, hyperlipidemia Home medications have been continued Clonidine as needed DVT prevention Subcutaneous heparin Discharge Planning Case management consulted for discharge planning Vijay Russell Nov 07, 2017 11:45
[2017-11-07 12:00] VITALS: BP 148/68; PULSE 77; RESP 18; TEMP 97.8; O2SAT 93
--- NOTE | 2017-11-07 12:54 | PD.ORT.PN ---
Subjective Subjective Remarks She is doing better today than she was when seen 2 days ago. She has less pain in the knee. She has been able to walk better. The physical therapist reports that she has better motion with less pain on motion. She does not recall any specific injury to cause her current pain. Her family is at bedside. They indicate that they are planning on taking her by an air to [place] and subsequently a [address] to their home. They do have an orthopedic surgeon who takes care of their family. Range of Motion 0 extension to 65-70 of flexion. Distance Walked 30 feet with physical therapy today, which is a steady improvement. Objective Vitals Vital Signs Date Time Temp Pulse Resp B/P (MAP) Pulse Ox O2 Delivery O2 Flow Rate FiO2 11/07/17 08:00 97.0 74 18 175/75 (108) 95 11/07/17 00:00 99.0 76 18 126/65 (85) 91 11/06/17 20:00 98.6 78 16 125/66 (85) 93 11/06/17 16:00 98.2 73 16 162/75 (104) 96 I/O 11/06/17 11/06/17 11/06/17 11/07/17 11/07/17 11/07/17 06:59 14:59 22:59 06:59 14:59 22:59 # Voids 4 1 Result Diagram: 11/05/17 0540 11/04/17 0739 Imaging Last 72 hours Impressions Lower Extremity Ultrasound 11/06/17 0000 Signed Impressions: Service Date/Time: Monday, November 06, 2017 12:36 - CONCLUSION: Complex hypoechoic joint fluid, fluid in Arango's cyst and likely extravasated fluid from Arango's cyst in the medial left calf. None of this appears amenable to simple aspiration. Nicholas López MD Lower Extremity Ultrasound 11/05/17 0000 Signed Impressions: Service Date/Time: Sunday, November 05, 2017 13:17 - CONCLUSION: 1. No deep venous thrombosis. 2. Probable ruptured in popliteal cyst. Darwin Terry MD FACR Objective Remarks She is resting comfortably, supine in bed with the left knee in extension. There is no major tenderness in the knee at this time. She is currently eating her lunch. Her family is at bedside. Assessment & Plan Problem List: (1) Status post total left knee replacement ICD Codes: Z96.652 - Presence of left artificial knee joint Status: Chronic (2) Effusion, left knee ICD Codes: M25.462 - Effusion, left knee Status: Acute Plan: She was seen by the interventional radiologist, Nicholas López M.D. After doing the ultrasound, he indicated that it was not likely to be beneficial to attempt an arthrocentesis because the contents of the knee are probably clotted blood which will not aspirate. I would recommend that she continue with physical therapy for range of motion and ambulation as tolerated. The clot will probably liquefy and ultimately can either be aspirated or left to absorb. I would suggest the latter as it would be less invasive and less likely cause a potential infection. The radiographic appearance of the prosthesis is satisfactory with no evidence of loosening or wear. I would not expect any of this at this stage. I have discussed her findings with her and her family (daughter and son-in-law) along with the recommendations. She should be able to return to her [facility] ( [facility]), where she should be able to get physical therapy either at the facility or through a home health agency, [facility]. I would recommend daily therapy for the first week and then alternating days if she stays any longer. I would not have any problems with her flying when she feels comfortable doing so. A flight from [place] will probably only be about [address] from the airport in [place] will probably be about 2 hours according to the family. The mobility between the drive to [place] and her flight as well as the arrival in [place] and the drive should be adequate for mobilization. If she continues to have multiple recurrences of hemarthrosis, it might be useful to have an interventional radiologist do an angiogram and possibly embolize any bleeding vessels with Gelfoam while she is actively bleeding. This is supported in the literature. I have seen this be effective. I have no problem with her being discharged at any time. Assessment and Plan Condition: Good. Orthopedically stable. Discharge plans: Home ([facility]) with home health care. An appointment was scheduled through the office previously, however she plans on leaving the area. Prescriptions: Tramadol 50 mg She may be discharged at any time from an orthopedic standpoint. Mike Fuller MD ([place]) Nov 07, 2017 12:54
--- NOTE | 2017-11-07 12:56 | HHI.FF ---
Face to Face Verification Diagnosis: (1) Effusion, left knee (2) Status post total left knee replacement (3) Left knee pain Physical Therapy Gait training Knee: Total knee, Protocol: Left, Gait training, Full weight bearing Left LE Weight Bearing: WB as tolerated Left LE Range of Motion: Active ROM I have seen patient Ivette Ha on 11/07/17. My clinical findings support the need for the requested home health care services because: Ltd mobility - disease progression Limited ability to care for self High risk of falls I certify that my clinical findings support that this patient is homebound because: Unsteady gait/balance Mike Fuller MD ([place]) Nov 07, 2017 12:56
[2017-11-07] MEDS ORDERED: ONDANSETRON ODT 4 MG TAB PO PRN (13:45)
[2017-11-07] MEDS ORDERED: BEDSIDE COMMODE1 MI1 (15:12)
[2017-11-07] MEDS ORDERED: TRAM50TA PO (15:13)
--- NOTE | 2017-11-07 15:18 | HHI.DS ---
Discharge Summary Admission Date Nov 03, 2017 at 18:03 Discharge Date: Nov 07, 2017 Admitting Diagnosis Intractable pain/left knee pain/unable to ambulate (1) Effusion, left knee ICD Code: M25.462 - Effusion, left knee Status: Acute (2) Hypertension ICD Code: I10 - Essential (primary) hypertension Procedures None Brief History - From Admission This is a pleasant 86-year-old female patient with a known medical history of hypertension, hyperlipidemia who presented to the ED with complaints of left knee pain. Patient states that she had a left knee replacement in 2007. Since that time patient has intermittently complained of pain and swelling requiring home pain medications. Patient does live at assisted living, at baseline she uses a walker for ambulation. It was reported yesterday morning patient felt increasing pain and inability to ambulate after receiving a left knee aspiration for joint effusion by Dr. Fuller on . Patient reports that Dr. Fuller aspirated the effusion and the drainage was analyzed which was reportedly negative. Patient denies any recent illness including fever, chills, cough, shortness of breath, abdominal pain, nausea, vomiting, diarrhea or dysuria. CBC/BMP: 11/05/17 0540 11/04/17 0739 Significant Findings Laboratory Tests Test 11/05/17 05:40 White Blood Count 12.3 TH/MM3 (4.0-11.0) Red Blood Count 3.40 MIL/MM3 (4.00-5.30) Hemoglobin 9.7 GM/DL (11.6-15.3) Hematocrit 29.6 % (35.0-46.0) Mean Platelet Volume 6.9 FL (7.0-11.0) Neutrophils (%) (Auto) 73.1 % (16.0-70.0) Neutrophils # (Auto) 9.0 TH/MM3 (1.8-7.7) Imaging Last Impressions Lower Extremity Ultrasound 11/06/17 0000 Signed Impressions: Service Date/Time: Monday, November 06, 2017 12:36 - CONCLUSION: Complex hypoechoic joint fluid, fluid in Arango's cyst and likely extravasated fluid from Arango's cyst in the medial left calf. None of this appears amenable to simple aspiration. Nicholas López MD Knee X-Ray 11/03/17 0000 Signed Impressions: Service Date/Time: Friday, November 03, 2017 16:22 - CONCLUSION: 1. No acute fracture or joint dislocation. 2. Joint effusion. This was recently aspirated. Cory Dillard MD PE at Discharge GENERAL: Well-developed, well-nourished, in no acute distress. alert and orientated HEENT: Head is normocephalic without any lesions or masses noted. Facial features are symmetric. Eyes: Extraocular muscles are intact. Conjunctivae were clear. NECK: Supple without any masses. Trachea midline no deviation. No JVD, CARDIAC: Regular rhythm, regular rate. S1/S2 are heard. 2/6 holosystolic murmur , no gallops or rubs. LUNGS: Clear to auscultation bilaterally. No wheeze, rhonchi or rales. No use of accessory muscles on inspiration or expiration. ABDOMEN: Soft, nontender. Nondistended. Bowel sounds heard in all 4 quadrants. No organomegaly or masses. Negative rebound, negative guarding EXTREMITIES: No edema, pulses are equal bilaterally. No cyanosis or clubbing. Left knee with palpable tenderness noted over the medial inferior patellar region NEUROLOGY: Mood and affect appear appropriate. Cranial nerves II through XII grossly intact. Moving all extremities, speech is clear Hospital Course Left knee pain with difficulty ambulating X-ray indicates joint effusion, ultrasound indicates probable ruptured popliteal cyst Radiologist consulted for aspiration, unable to aspirate due to inadequate fluid. Orthopedist was consulted for recommendations. Indicated no surgical intervention. Recommended outpatient physical therapy with outpatient follow-up Physical therapy evaluation to evaluate patient recommending rehabilitation Hypertension, hyperlipidemia Home medications have been continued Clonidine as needed Pt Condition on Discharge: Stable Discharge Disposition: Disch w/ Home Health Serv Discharge Time: > 30 minutes Discharge Instructions DIET: Follow Instructions for: Heart Healthy Diet Activities you can perform: Non Weight Bearing Follow up Referrals: Orthopedics - 2 Weeks PCP Follow-up - 1 Week New Medications: Bedside Commode (Bedside Commode) 1 Mis Mis EA .XX DIRECTED, #1 Tramadol (Tramadol) 50 Mg Tab 50 MG PO Q8H PRN for PAIN for 10 Days, #30 TAB 0 Refills Continued Medications: Calcium Carb,Gluc/Mag Ox,Gluc (Calcium Magnesium Caplet) 500 Mg Calcium-250 Mg Tablet 1 TAB PO DAILY Citalopram (Citalopram) 10 Mg Tab 10 MG PO DAILY for Control Depression, #30 TAB 0 Refills Furosemide (Furosemide) 20 Mg Tab 20 MG PO EVERY OTHER DAY, #30 TAB 0 Refills Losartan (Losartan) 25 Mg Tab 25 MG PO DAILY for Blood Pressure Management, #30 TAB 0 Refills Lovastatin (Lovastatin) 40 Mg Tab 40 MG PO DAILY for Cholesterol Management, #30 TAB 0 Refills Multiple Vitamins W/ Minerals (Ocuvite) 1 Tab 1 TAB PO DAILY for Nutritional Supplement, TAB 0 Refills Omeprazole (Omeprazole) 20 Mg Tab 20 MG PO DAILY, #30 TAB 0 Refills Potassium Chloride ER (Potassium Chloride ER) 10 Meq Cap 10 MEQ PO EVERY OTHER DAY for Electrolyte Replacement, #30 CAP 0 Refills Wheelchair (Wheelchair) 1 Mis Mis EA .XX DIRECTED, #1 0 Refills (This prescription has been renewed) Discontinued Medications: Cephalexin (Cephalexin) 500 Mg Cap 500 MG PO Q6H for Infection, CAP 0 Refills Vijay Russell Nov 07, 2017 15:18
[2017-11-07] MEDS ORDERED: WHEEMIS3 ×2 (15:20→15:30)
== END 2017-11-07 18:07 | disposition home or self-care (01) ==
LOC: PHED 15:43 → PHEDA 18:03 → PH3A 20:42
PROVIDERS: ADMIT Hospitalist; ATTEND Hospitalist
DX: M25.462 Effusion, left knee (principal); M25.562 Pain in left knee; M71.22 Synovial cyst of popliteal space [Baker], left knee; I10 Essential (primary) hypertension; R94.31 Abnormal electrocardiogram [ECG] [EKG]; E78.00 Pure hypercholesterolemia, unspecified; K21.9 Gastro-esophageal reflux disease without esophagitis; H91.93 Unspecified hearing loss, bilateral; M19.90 Unspecified osteoarthritis, unspecified site; Z79.899 Other long term (current) drug therapy; Z96.653 Presence of artificial knee joint, bilateral
CPT/HCPCS: 73560; 76882; 80053; 85025; 93005; 93971; 96372; 96374; 96375; 96376; 97110; 97116; 97162; 97166; 99285; G0378; G8987; G8988; G8989; J1170; J1644; J1885; J2270; J2405